=== PATIENT | female | born 1990 | race Caucasian/White ===

== ENCOUNTER 2024-04-02 15:09 | Outpatient (REF) | payer MEDICAID, SELFPAY ==
--- NOTE | ~2024-04-02 | US_ITS ---
EXAMINATION: US SOFT TISSUE OF THE NECK CLINICAL INFORMATION: Swollen lymph nodes. Evaluate axilla area indicated by patient. COMPARISON: None available. TECHNIQUE: Linear transducer grayscale and color Doppler examination of the cervical lymph nodes and axilla. FINDINGS: RIGHT NECK SOFT TISSUES: Scattered architecturally normal nodes are present. The nodes show normal fatty hilus, normal cortical thickness, and no cystic change or calcification. No abnormal color flow. The largest nodes are as follows: Level 1B: 1.4 x 0.5 x 1.7 cm. Normal jass architecture. Level 2: 1.0 x 0.4 x 1.0 cm. Normal jass architecture. Level 2: 1.0 x 0.5 x 1.1 cm. Normal jass architecture. LEFT NECK SOFT TISSUES: Scattered architecturally normal nodes are present. The nodes show normal fatty hilus, normal cortical thickness, and no cystic change or calcification. No abnormal color flow. The largest nodes are as follows: Level 1B: 1.2 x 0.6 x 1.1 cm. Normal jass architecture. Level 1B: 1.4 x 0.8 x 1.4 cm. Normal jass architecture. Level 2: 1.5 x 0.5 x 1.6 cm. Normal jass architecture. Level 2: 0.7 x 0.3 x 0.7 cm. Normal jass architecture. Level 5A: 1.0 x 0.5 x 1.2 cm. Normal jass architecture. BILATERAL AXILLAE: No lymphadenopathy is seen. There is no abnormal mass or fluid collection. US/US soft tiss head and/or neck IMPRESSION: 1. Nonpathologically enlarged bilateral cervical lymph nodes are seen, with normal architectural features. Recommend management on a clinical basis. There is no sizable cervical lymphadenopathy. 2. No axillary lymphadenopathy is seen. Electronically signed by: Juan Perry MD 04/23/2024 09:20 PM [facility]
== END 2024-04-02 15:10 | disposition home or self-care (01) ==
LOC: HO.US 15:09
PROVIDERS: PCP Physician Assistant Medical; Visit Provider Physician Assistant Medical
DX: R59.9 Enlarged lymph nodes, unspecified (principal)
CPT/HCPCS: 76536

== ENCOUNTER 2024-11-08 11:48 | Outpatient (REF) | payer MEDICAID, SELFPAY ==
--- NOTE | ~2024-11-08 | XR_ITS ---
CLINICAL HISTORY: M79.642 - Pain in left hand 3 view left hand Comparison: None Findings: Bones intact. No dislocations. No significant arthritic change. No erosions. No radiopaque foreign body. IMPRESSION: 1. No acute findings This document has been electronically signed by: Emerson Gusman MD on 11/09/2024 09:46:45
== END 2024-11-08 11:49 | disposition home or self-care (01) ==
LOC: HO.HOSX 11:48
PROVIDERS: PCP Physician Assistant Medical
DX: M79.642 Pain in left hand (principal); M79.641 Pain in right hand; R20.2 Paresthesia of skin; R20.0 Anesthesia of skin; M25.531 Pain in right wrist; M25.532 Pain in left wrist
CPT/HCPCS: 73130; 99212

== ENCOUNTER 2024-11-08 11:48 | Outpatient (AMB) | payer MEDICAID, SELFPAY ==
[2024-11-08 12:12] VITALS: BMI 42.8
--- NOTE | 2024-11-08 12:12 | MHC.OFFVIS ---
Vital Signs 11/08/24 12:12 Height 5 ft 9 in Weight 290 lb BMI 42.8 Intake Visit Reasons: [employer]- Left wrist/hand pain Intake Note: Kelsey is a 34 year old right hand dominant female who presents today for evaluation of left hand pain. Patient reports on 11/07/24 she picked up a box from [employer] and did not realize it was a metal swing set. She expresses when she lifted the box she experienced a shooting pain in the left hand middle finger that radiated up into her elbow. She is having continued pain when attempts to make a pinching, gripping twisting motion. Reports having intermittent numbness and tingling comes and goes in her left middle finger and left small finger. no EMG study done. Allergies No Known Allergies Allergy (Verified 11/08/24 12:15) HPI HPI [employer]- Left wrist/hand pain: Details: Kelsey is a 34 year old right hand dominant female who presents today for evaluation of left hand pain. Patient reports on 11/07/24 she picked up a box from [employer] and did not realize it was a metal swing set. She expresses when she lifted the box she experienced a shooting pain in the left hand middle finger that radiated up into her elbow. She is having continued pain when attempts to make a pinching, gripping twisting motion. Reports having intermittent numbness and tingling comes and goes in her left middle finger and left small finger. no EMG study done. 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 Neuro: Normal sensation of the tips of all digits of the left hand at this time Vascular: Cap refill brisk Pain: No tenderness to palpation about the left hand or wrist No tenderness to palpation of the right hand or wrist Minimal discomfort with range of motion testing in the office today ROM: Patient is able to make a closed fist and extend all digits of the bilateral hand fully and without difficulty Flexion, extension, pronation, supination full and intact of bilateral wrists Skin: No lacerations or abrasions. General: No ecchymosis, erythema, or evidence of infection. Psych: Appears grossly normal Affect normal Attitude cooperative Assessment & Plan Assessment & Plan (1) Numbness and tingling in left hand: Code(s): R20.0 - Anesthesia of skin; R20.2 - Paresthesia of skin Category: Medical (2) Bilateral hand pain: Code(s): M79.641 - Pain in right hand; M79.642 - Pain in left hand Category: Medical (3) Bilateral wrist pain: Code(s): M25.531 - Pain in right wrist; M25.532 - Pain in left wrist Category: Medical Plan 1. Left hand pain 2. Bilateral wrist pain 2. Numbness and tingling of left hand EMG and nerve conduction study ordered to assess the health of the nerves of the left upper extremity No study currently Follow-up after EMG and nerve conduction study for results review and discussion of further treatment options if indicated In the meantime, bilateral Velcro wrist splints provided to wear with sleeping and while her wrists are particularly bothering her Patient is amenable to this plan Follow-up after study Orders: Orders XR hand LT min 3V Today M79.642 - Pain in left hand NE nerve conduction velocity Today R20.0 - Anesthesia of skin, R20.2 - Paresthesia of skin NE electromyogram (EMG) Today R20.0 - Anesthesia of skin, R20.2 - Paresthesia of skin Coding Level of Care Code New Pt Level 3 (54573) Diagnoses Numbness and tingling in left hand R20.0; R20.2 Bilateral hand pain M79.641; M79.642 Bilateral wrist pain M25.531; M25.532
--- OUTSIDE RECORDS SUMMARY | 2024-11-08 12:39 | XMS_ITS | Clinical Summary ---
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 Active sulfamethoxazol e-trimethoprim (BACTRIM DS,SEPTRA DS) 800-160 mg per tablet Take 1 tablet by mouth 2 (two) times a day. Active Social History Tobacco Use Types Packs/Day Years Used Date Smoking Tobacco: Former Alcohol Use Standard Drinks/Week Comments Never 0 (1 standard drink = 0.6 oz pur e alcohol) Comments Unknown Sex and Gender Information Value Date Recorded Sex Assigned at Not on file Legal Sex Female 11:03 AM EDT Gender Identity Not on file Sexual Orientation Not on file Obstetrics History Last Filed Vital Signs Vital Sign Reading Time Taken Comments Blood Pressure 124/85 10/10/2023 11:02 AM EDT Pulse 87 10/10/2023 11:02 AM EDT Temperature - - Respiratory Rate - - Oxygen Saturation - - Inhaled Oxygen Concentration - - Weight 136 kg (300 lb 6.4 oz) 10/10/2023 11:02 A M EDT Height 175.3 cm (5' 9 ) 10/10/2023 11:02 AM EDT Body Mass Index 44.36 10/10/2023 11:02 AM EDT Plan of Treatment Health Maintenance Due Date Last Done Comments DTaP,Tdap,and Td Vaccines (1 - Tdap) 08/18/2010 Hepatitis B Vaccines (1 of 3 - 19+ 3-dose series) 08/18/2010 Cervical Cancer Screening: P ap Smear 08/18/2012 Depression Screening 01/03/2024 HIV Screening 01/03/2024 Hepatitis C Screening 01/03/2024 Social Influencers of Health Screening 01/03/2024 COVID-19 Vaccine ( - 2023-2 5 season) 2024 Influenza Vaccine (Season Ended) 2025 HIB Vaccines Aged Out No longer eligi ble based on patient's age to complete this topic HPV Vaccines Aged Out No longer eligi ble based on patient's age to complete this topic Hepatitis A Vaccines Aged Out No long er eligible based on patient's age to complete this topic IPV Vaccines Aged Out No longer eligi ble based on patient's age to complete this topic MMR Vaccines Aged Out No longer eligi ble based on patient's age to complete this topic Meningococcal ACWY Vaccine Aged Out N o longer eligible based on patient's age to complete this topic Meningococcal B Vaccine Aged Out No l onger eligible based on patient's age to complete this topic Pneumococcal Vaccine: Pediat rics (0 to 5 Years) and At-Risk Patients (6 to 64 Years) Aged Out No longer eligible b ased on patient's age to complete this topic RSV Immunization Patients Un shaina 20 months Aged Out No longer eligible b ased on patient's age to complete this topic Varicella Vaccines Aged Out No longer eligible based on patient's age to complete this topic Insurance [place]ICA[place] - [place] Care 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
== END 2024-11-08 12:39 | disposition home or self-care (01) ==
LOC: HO.HOS 11:48
PROVIDERS: PCP Physician Assistant Medical
DX: R20.0 Anesthesia of skin (principal); R20.2 Paresthesia of skin; M79.641 Pain in right hand; M79.642 Pain in left hand; M25.531 Pain in right wrist; M25.532 Pain in left wrist
CPT/HCPCS: 99203

== ENCOUNTER → 2024-11-08 11:52 | Outpatient (BNV) | payer MEDICAID, SELFPAY | PROVIDERS: PCP Physician Assistant Medical; Visit Provider Specialist | DX: M79.642 Pain in left hand (principal) | CPT/HCPCS: 73130 ==

== ENCOUNTER 2024-12-05 15:06 | Outpatient (REF) | payer MEDICAID, SELFPAY ==
--- NOTE | 2024-12-05 15:14 | EMG_ITS ---
Chief complaint: On and off numbness left middle and 5th digits, chronic wrist pain Reason for referral: Evaluate for Carpal Tunnel Syndrome or ulnar neuropathy Referred by: Anmol RAMSEY Procedure done: Left upper extremity NCS/EMG Precautions and/or limitations: None The limb temperature was monitored continuously and remained between 32-36 degrees C during the performance of the NCS. Nerve Conduction Studies Anti Sensory Summary Table ?Stim Site NR Onset (ms) Norm Onset (ms) Peak (ms) Norm Peak (ms) O-P Amp (?V) Norm O-P Amp Site1 Site2 Delta-0 (ms) Dist (cm) Miguel Angel (m/s) Norm Miguel Angel (m/s) Left Median Anti Sensory (2nd Digit) Wrist ? 2.3 3.1 <3.6 55.3 >10 Wrist 2nd Digit 2.3 14.0 61 Left Ulnar Anti Sensory (5th Digit) Wrist ? 2.2 3.0 <3.7 38.0 >15.0 Wrist 5th Digit 2.2 14.0 64 Motor Summary Table ?Stim Site NR Onset (ms) Norm Onset (ms) O-P Amp (mV) Norm O-P Amp iAmp (mV) Amp (1st) (%) Site1 Site2 Delta-0 (ms) Dist (cm) Miguel Angel (m/s) Norm Miguel Angel (m/s) Left Median Motor (Abd Poll Brev) Wrist ? 3.9 <3.9 7.5 >4.5 9.3 100.0 Elbow Wrist 3.8 21.0 55 >45 Elbow ? 7.7 7.4 9.2 98.7 Left Ulnar Motor (Abd Dig Minimi) Wrist ? 2.7 <3.0 7.0 >5 8.8 100.0 B Elbow Wrist 3.2 21.0 66 >45 B Elbow ? 5.9 6.1 8.2 87.1 A Elbow B Elbow 1.5 10.0 67 >45 A Elbow ? 7.4 6.1 8.1 87.1 Comparison Summary Table ?Stim Site NR Peak (ms) Norm Peak (ms) P-T Amp (?V) Site1 Site2 Delta-P (ms) Norm Delta (ms) Left Median/Radial Dig I Comparison (Digit 1 - 10cm) Median ? 2.6 <2.9 92.8 Median Radial 0.0 Radial ? 2.6 <2.8 21.0 EMG ?Side Muscle Nerve Root Ins Act Fibs Psw Amp Dur Poly Recrt Int Pat Comment Left 1stDorInt Ulnar C8-T1 Nml Nml Nml Nml Nml 0 Nml Complete Left FlexCarRad Median C6-7 Nml Nml Nml Nml Nml 0 Nml Complete Left Biceps Musculocut C5-6 Nml Nml Nml Nml Nml 0 Nml Complete Left Triceps Radial C6-7-8 Nml Nml Nml Nml Nml 0 Nml Complete Left Deltoid Axillary C5-6 Nml Nml Nml Nml Nml 0 Nml Complete FINDINGS: All motor and sensory nerves tested showed normal latencies, amplitudes and conduction velocities. Concentric needle EMG was performed in selected muscles of the left upper extremity. Study did not reveal signs of electric abnormalities as shown in the table above. IMPRESSION: 1. This is a normal study. 2. There is no electrodiagnostic evidence for median neuropathy, ulnar neuropathy, brachial plexopathy, or cervical radiculopathy. Thank you for your kind referral. Charline Davies MD, RACHELE Board Certified, [place] Board [employer] and Rehabilitation (ABPMR) Board Certified, [place] Board of Electrodiagnostic Medicine (ABEM) CODIN [id number] MTDD
--- OUTSIDE RECORDS SUMMARY | 2024-12-05 18:20 | XMS_ITS | Patient Health Record ---
Author Organization [facility] Address [address] [place], [place] [id number] Care Team Providers Care Healthcare Facility Administrator Name Role Phone Ricardo Campos Primary Care Provider Cristi Alcala Unavailable [phone] Reason For Referral No Information Social History Tobacco Use: Social History Observation Description Date Details (start date - stop date) Current Smoker NA - NA Smoking: Question Answer Notes Are you a current smoker How often do you smoke cigarettes? every day Problems Problem Type SNOMED Code ICD Code Onset Dates Problem Status W/U Status Risk Notes Problem 032977794 Morbid obesity (E66.01) Active confirmed Problem [id number] Palpitations (R00.2) Active confirmed Plan Of Treatment No Information Insurance Providers Payer Name Payer Address Payer Phone Subscriber Number Group Number Insured Name Patient Relationship to Insured Coverage Start Date Coverage End Date [facility] [address] JU[place] Cardenas [phone] [id number] Kelsey Garcia Self - patient is the insured Medical (General) History Medical History History ICD Code Asthmatic Palpitations Surgical History Surgery Date(Month/Year)
== END 2024-12-05 15:07 | disposition home or self-care (01) ==
LOC: HO.NEURO 15:06
DX: R20.0 Anesthesia of skin (principal); R20.2 Paresthesia of skin
CPT/HCPCS: 95886; 95909

== ENCOUNTER → 2024-12-05 15:14 | Outpatient (BNV) | payer MEDICAID, SELFPAY | PROVIDERS: Visit Provider Physical Medicine & Rehabilitation | DX: R20.2 Paresthesia of skin (principal); M25.532 Pain in left wrist | CPT/HCPCS: 95886; 95909 ==

== ENCOUNTER 2024-12-20 11:30 | Outpatient (AMB) | payer MEDICAID, SELFPAY ==
[2024-12-20 11:45] VITALS: BMI 42.8
--- NOTE | 2024-12-20 11:45 | MHC.OFFVIS ---
Vital Signs 12/20/24 11:45 Height 5 ft 9 in Weight 290 lb BMI 42.8 Intake Visit Reasons: OV-EMG/NCS review left hand/wrist Intake Note: Kelsey is a 34 year old right hand dominant female who presents today for a EMG review of the left hand. Normal study Allergies No Known Allergies Allergy (Verified 12/20/24 11:46) HPI HPI OV-EMG/NCS review left hand/wrist: Details: Patient is a 34-year-old female who presents for EMG review of the left hand and wrist. Patient reports that her symptoms have improved greatly from previous evaluation, and then her pain has greatly improved, numbness and tingling has completely resolved. No other acute complaints or concerns at this time. 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 Neuro: Normal sensation of the tips of all digits of the left hand at this time Vascular: Cap refill brisk Pain: No tenderness to palpation about the left hand or wrist No tenderness to palpation of the right hand or wrist Minimal discomfort with range of motion testing in the office today ROM: Patient is able to make a closed fist and extend all digits of the bilateral hand fully and without difficulty Flexion, extension, pronation, supination full and intact of bilateral wrists Skin: No lacerations or abrasions. General: No ecchymosis, erythema, or evidence of infection. Psych: Appears grossly normal Affect normal Attitude cooperative Assessment & Plan Assessment & Plan (1) Bilateral hand pain: Code(s): M79.641 - Pain in right hand; M79.642 - Pain in left hand Category: Medical (2) Bilateral wrist pain: Code(s): M25.531 - Pain in right wrist; M25.532 - Pain in left wrist Category: Medical (3) Numbness and tingling in left hand: Code(s): R20.0 - Anesthesia of skin; R20.2 - Paresthesia of skin Category: Medical Plan 1. Numbness and tingling of left hand Left hand and wrist pain Symptoms have resolved With a negative EMG, no acute i surgical intervention is indicated With complete symptom resolution, no further intervention is indicated Patient understands this is amenable to this plan Follow-up as needed Coding Level of Care Code Est Pt Level 3 (42644) Diagnoses Bilateral hand pain M79.641; M79.642 Bilateral wrist pain M25.531; M25.532 Numbness and tingling in left hand R20.0; R20.2
--- OUTSIDE RECORDS SUMMARY | 2024-12-20 12:00 | XMS_ITS | Clinical Summary ---
Author Organization [facility] Address [address] [place] [address] Care Team Providers Care System Sales Consultant Name Role Phone Pat Lau Primary Care Provider [phone] Source Comments PLEASE NOTE, if this patient is a minor, it may be UNLAWFUL to discuss sensitive information that is contained in these records (such as FAMILY PLANNING, MENTAL HEALTH or SUBSTANCE ABUSE) with the minor patient's parent or other person without the patient's specific authorization.[facility] Allergies No known active allergies Medications ergocalciferol (VITAMIN D-2) 1,250 mcg (50,000 unit) capsuleIndicati ons:Vitamin D deficiency TAKE 1 CAPSULE BY MOUTH EVERY WEEK DIRECTED 90 Capsule 1 4 Active VENTOLIN HFA 90 mcg/actuation inhaler INHALE 2 PUFFS EVERY 4 HOURS BY INHALATION ROUTE. 4 Active acetaminophen (TYLENOL) 500 mg tabletIndicatio ns:Hypermobilit y syndrome TAKE 2 TABLETS BY MOUTH EVERY 6 HOURS NEEDED 180 Tablet 2 4 Active cyclobenzaprine (FLEXERIL) 10 mg tabletIndicatio ns:Hypermobilit y syndrome TAKE 1 TABLET BY MOUTH TWICE DAILY FOR 5 DAYS NEEDED FOR PAIN 10 Tablet 1 4 Active ibuprofen 800 mg tabletIndicatio ns:Hypermobilit y syndrome Take 1 Tablet by mouth 3 (three) times daily as needed for pain 90 Tablet 4 Active gabapentin (NEURONTIN) 100 mg capsuleIndicati ons:Hypermobili ty syndrome Take 1 Capsule by mouth daily 90 Capsule 1 5 Active Active Problems Problem Noted Date Diagnosed Date Ankle pain 03/18/2024 Closed fracture of metatarsal bone 03/18/2024 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 Low back pain 03/18/2024 Neck pain 03/18/2024 Pain in thoracic spine 03/18/2024 Hypermobility syndrome 12/12/2023 Mild intermittent asthma without complication (H [facility]-HCC) 12/12/2023 Class 3 severe obesity due t o excess calories without serious comorbidity with body mass index (BMI) of 40.0 to 44.9 in adult ([facility]) 12/12/2023 Abnormal cervical Papanicolaou smear 12/12/2023 Vitamin D deficiency 12/12/2023 Chronic pain of both knees 06/09/2023 Overview (03/18/2024): Pain and locking of the knee hurts to extend when bent too long. Vertigo 10/10/2018 Plantar fasciitis 07/22/2018 Pain in both feet 07/10/2018 Encounters Date Type Department Care Team Description 11/12/2024 10:40 AM EDT Office Visit [address] [phone] Pat Lau PA from Last 3 Months Family History Medical History Relation Name Comments Stroke Maternal Grandmother Skin cancer Paternal Grandfather Stroke Paternal Grandfather Relation Name Status Comments Brother Alive Father Alive Maternal Grandmother Mother Alive Paternal Grandfather Alive Sister Alive Social History Tobacco Use Types Packs/Day Years Used Date Smoking Tobacco: Never Smokeless Tobacco: Never Tobacco Cessation:Counseling Given: Not Answered Alcohol Use Standard Drinks/Week Comments Not Currently 0 (1 standard drink = 0.6 oz pur e alcohol) Social Connections Answer Date Recorded How often do you feel lonely or isolated from th ose around you? 1 03/14/2024 Financial Resource Strain Answer Date R ecorded Hard to pay for: Utilities 1 03/14 Stress Answer Date Recorded Do you feel these kinds of stress these days? 1 03/14/2024 Physical Activity Answer Date Recorded Physical Activity 0 10/03/2023 Food Insecurity Answer Date Recorded Within the past 12 months, t he food you bought just didn't last and you didn't have enough money to get more. 1 03/14/20 24 Transportation Needs Answer Date Record ed Hard to pay for: Transportation 1 03/14/2024 Housing Stability Answer Date Recorded Hard to pay for: Rent/Mortgage payment 1 03/14/2024 Safety and Environment Answer Date Parish rded How often does anyone, inclu ding family and friends, physically hurt you? 1 12/12/2023 Utilities Answer Date Recorded Hard to pay for: Utilities 1 03/14 Employment Answer Date Recorded Stress 0 12/12/2023 Comments No Sex and Gender Information Value Date Recorded Sex Assigned at Female 12/12/2023 6:44 AM PDT Legal Sex Female 8:40 AM PST Gender Identity Female 12/12/2023 6:44 AM PDT Sexual Orientation Straight 12/12/2023 6: 44 AM PDT Last Filed Vital Signs Vital Sign Reading Time Taken Comments Blood Pressure 114/74 11/12/2024 10:58 AM EDT Pulse 90 11/12/2024 10:58 AM EDT Temperature 36.9 C (98.5 F) 07/02/2024 3:49 PM EST Respiratory Rate 18 11/12/2024 10:58 AM EDT Oxygen Saturation 99% 11/12/2024 10:58 AM EDT Inhaled Oxygen Concentration - - Weight 131.1 kg (289 lb) 11/12/2024 10:58 AM EDT Height 175.3 cm (5' 9 ) 11/12/2024 10:58 AM EDT Body Mass Index 42.68 11/12/2024 10:58 AM EDT Plan of Treatment Health Maintenance Due Date Last Done Comments HPV Screening 1991 Imm-DTaP/Tdap/Td (1 - Tdap) 08/18/2010 Imm-Hepatitis B (1 of 3 - 19 + 3-dose series) 08/18/2010 Imm-Pneumococcal (1 of 2 - PCV) 08/18/2010 Srp-GDHQA-90 ( - season) 2024 Relationship Safety Screening/Counseling 12/11/2024 12/12/2023 Imm-Influenza (#1) 2025 Annual Wellness (Adult): Ind icated (All Coverage) 03/14/2025 03/14/2024 Anxiety Screening 03/14/2025 03/14/2024 Tobacco Screening 03/14/2025 03/14/2024 Cervical Cancer Screening 05/12/2025 Pap + HPV 05/12/2025 05/23/2024 Hypertension Screening (#1) 11/12/2025 Lipid Screening 03/14/2027 03/14/2024 Pap Smear 05/23/2027 05/23/2024 HIV Screening Completed 03/14/2024, 01/12/2022 Hepatitis C Screening Completed 03/14/2024 Alcohol and Drug Screen Completed 07/02/19, 03/14/2024, 12/12/2023 Depression Annual Screen Completed 07/02/2024, 07/2023 Cervical Ablation/Cold-Knife Conization Discontinued Cervical Cryotherapy Discontinued Colposcopy Discontinued Endometrial Biopsy Discontinued Excision/Leep Discontinued HPV Genotyping Discontinued Vaginal Pap Discontinued Vulvoscopy Discontinued Procedures Procedure Name Priority Date/Time Associated Diagnosis Comments REFERRAL SCANNED DOCUMENT 11/08/2024 3:00 AM EDT IMAGING SCANNED DOCUMENT 11/08/2024 3:00 AM EDT THINPREP IMAGING PAP, HPV MRNA E6/E7 RFLEX HPV 16,18/45 CT/NG Routine 05/23/2024 1:54 PM EST Cervical dysplasia HIV 1/2 AG & AB W/RFLX (4TH GEN) Routine 03/14/2024 2:19 PM EDT Routine screening for STI (sexually transmitted infection) HEPATITIS C AB W/RFLX HCV RNA, QT, RT PCR Routine 03/14/2024 2:19 PM EDT Routine screening for STI (sexually transmitted infection) LIPID PANEL Routine 03/14/2024 2:19 PM EDT Annual physical exam Class 3 severe obesity due to excess calories without serious comorbidity with body mass index (BMI) of 40.0 to 44.9 in adult ([facility]) from Last 3 Months or Most Recently Relevant to Health Maintenance Results * REFERRAL SCANNED DOCUMENT (11/08/2024 3:00 AM EDT) 11/08/2024 3:00 AM EDT us Pat Lau PA SCAN REFERRAL Final Result * IMAGING SCANNED DOCUMENT (11/08/2024 3:00 AM EDT) 11/08/2024 3:00 AM EDT Result [facility] Mandie Panda PA-C SCAN IMAGING Final Result * (ABNORMAL) THINPREP IMAGING PAP, HPV MRNA E6/E7 RFLEX HPV 16,18/45 CT/NG (05/23/2024 1:54 PM EST) CHLAMYDIA TRACHOMATIS RNA, TMA NOT DETECTED NOT DETECTED [facility] NEISSERIA GONORRHOEAE RNA, TMA NOT DETECTED NOT DETECTED [facility] COMMENT [facility] CLINICAL INFORMATION See Note [facility] Comment:None given LMP See Note [facility] Comment:NONE GIVEN PREV. PAP See Note [facility] Comment:NONE GIVEN PREV. BX See Note [facility] Comment:NONE GIVEN SOURCE See Note [facility] Comment:Cervix STATEMENT OF ADEQUACY See Note [facility] Comment: Satisfactory for evaluation. Endocervical/transformation zone component present. GENERAL CATEGORIZATION See Note(A) [facility] Comment:Cytology Results: Ep ithelial Cell Abnormality INTERPRETATION/RESU LT See Note(A) [facility] Comment:Low Grade Squamous I ntraepithelial Lesion (LSIL) COMMENT See Note [facility] Comment: This Pap test has been evaluated with computer assisted technology. CAM SPECIALIST See Note [facility] [employer] Comment: MRC, CT(ASCP) CT screening location: [place] [address] PATHOLOGIST See Note [facility] Comment: Sayra Mayfield M.D. Direct , Board Certified in Anatomic and Clinical Pathology and Cytopathology (electronic signature) Consulting Pathologist [facility] [address] [place] [address] COMMENT [facility] HPV MRNA E6/E7 Detected(A ) Not Detected [facility] Comment: Methodology: Flag Maker-Mediated Amplification This assay detects E6/E7 viral messenger RNA (mRNA) from 14 high-risk HPV types (16,18,31,33,35,39,45,51,52,56,58,59,66,68). Cervical sources are required for HPV testing. If a vaginal source from a patient who has had a total hysterectomy with removal of cervix was submitted, please contact the testing laboratory for alternative testing options. For additional information, please refer to http://[employer]/faq/LUM564s1 (This link if provided for information/ educational purposes only.) Swab Cervix uteri structure / Unknown 05/23/2024 1:54 PM EST 05/24/2024 5:47 AM EST Narrative [facility] - 05/28/2024 6:22 AM EST EXPLANATORY NOTE: The Pap is a screening test for cervical cancer. It is not a diagnostic test and is subject to false negative and false positive results. It is most reliable when a satisfactory sample, regularly obtained, is submitted with relevant clinical findings and history, and when the Pap result is evaluated along with historic and current clinical information. The analytical performance characteristics of this assay, when used to test SurePath(TM) specimens have been determined by [employer]. The modifications have not been cleared or approved by the FDA. This assay has been validated pursuant to the CLIA regulations and is used for clinical purposes. For additional information, please refer to https://[employer]/faq/MTC712 (This link is being provided for information/ educational purposes only.) Liudmila Formisano DO LAB - PATHOLOGY AND CYTOLOGY A MBULATORY Final Result [employer] [address] [address], [facility] [address] [address] * HEPATITIS C AB W/RFLX HCV RNA, QT, RT PCR (03/14/2024 2:19 PM EDT) HEPATITIS C ANTIBODY NON-REACT HEATHER NON-REACT HEATHER Location Labs [facility] Comment: HCV antibody was non-reactive. There is no laboratory evidence of HCV infection. In most cases, no further action is required. However, if recent HCV exposure is suspected, a test for HCV RNA (test code 28581) is suggested. For additional information please refer to http://[employer]/faq/WFV90d7 (This link is being provided for informational/ educational purposes only.) Blood Blood / Unknown 03/14/2024 2 :19 PM EDT 03/14/2024 2:19 PM EDT Mandie Panda PA-C LAB - BLOOD DRAW Edited Resu lt - Final Performing Organization Address City/[facility]/ZIP Co de Phone Number [facility] [address] [address], [facility] [address] [address] * HIV 1/2 AG & AB W/RFLX (4TH GEN) (03/14/2024 2:19 PM EDT) HIV AG/AB, 4TH GEN NON-REAC TIVE NON-REAC TIVE [facility] Comment: HIV-1 antigen and HIV-1/HIV-2 antibodies were not detected. There is no laboratory evidence of HIV infection. PLEASE NOTE: This information has been disclosed to you from records whose confidentiality may be protected by state law. If your state requires such protection, then the state law prohibits you from making any further disclosure of the information without the specific written consent of the person to whom it pertains, or as otherwise permitted by law. A general authorization for the release of medical or other information is NOT sufficient for this purpose. For additional information please refer to http://[employer]/faq/GLQ805 (This link is being provided for informational/ educational purposes only.) The performance of this assay has not been clinically validated in patients less than 2 years old. Blood Blood / Unknown 03/14/2024 2 :19 PM EDT 03/14/2024 2:19 PM EDT us Mandie Panda PA-C LAB - BLOOD DRAW Final Resul t Performing Organization Address [facility]/ZIP Co de Phone Number [facility] [address] [address], [employer] [address] [address] * LIPID PANEL (03/14/2024 2:19 PM EDT) CHOLESTEROL, TOTAL 151 <200 mg/dL [facility] HDL CHOLESTEROL 55 > OR = 50 mg/dL Location Labs [facility] TRIGLYCERIDES 50 <150 mg/dL [facility] LDL-CHOLESTEROL 84 99 mg/dL (calc) [facility] Comment: Reference range: <100 Desirable range <100 mg/dL for primary prevention; <70 mg/dL for patients with CHD or diabetic patients with > or = 2 CHD risk factors. LDL-C is now calculated using the Mary calculation, which is a validated novel method providing better accuracy than the Friedewald equation in the estimation of LDL-C. Christopher SS et al. KENNEDY. 2013;310(19): 5340-9236 (http://education.Parental Health/faq/SZZ835) CHOL/HDLC RATIO 2.7 <5.0 (calc) Location Labs [facility] NON-HDL CHOLESTEROL 96 <130 mg/dL (calc) Location Labs [facility] Comment: For patients with diabetes plus 1 major ASCVD risk factor, treating to a non-HDL-C goal of <100 mg/dL (LDL-C of <70 mg/dL) is considered a therapeutic option. Blood Blood / Unknown 03/14/2024 2 :19 PM EDT 03/14/2024 2:19 PM EDT Mandie Panda PA-C LAB - BLOOD DRAW Final Resul t [employer] [facility] [address] [address], [facility] [address] [address] from Last 3 Months or Most Recently Relevant to Health Maintenance Insurance [id number] Care Teams System Sales Consultant Relationship Specialty Start Date End Date Pat Lau PA [address] [place] [address] PCP - General Primary Care 10/11/23
--- OUTSIDE RECORDS SUMMARY | 2024-12-20 12:00 | XMS_ITS | Patient Health Record ---
Author Organization [facility] Address [address] [place], [place] [id number] Care Team Providers Care Outside Operator Name Role Phone Ricardo Campos Primary Care Provider Cristi Alcala Unavailable [phone] Reason For Referral No Information Social History Tobacco Use: Social History Observation Description Date Details (start date - stop date) Current Smoker NA - NA Smoking: Question Answer Notes Are you a current smoker How often do you smoke cigarettes? every day Problems Problem Type SNOMED Code ICD Code Onset Dates Problem Status W/U Status Risk Notes Problem 492871956 Morbid obesity (E66.01) Active confirmed Problem 78566521 Palpitations (R00.2) Active confirmed Plan Of Treatment No Information Insurance Providers Payer Name Payer Address Payer Phone Subscriber Number Group Number Insured Name Patient Relationship to Insured Coverage Start Date Coverage End Date [facility] [address] JUAN Cardenas [phone] [id number] Kelsey Garcia Self - patient is the insured Medical (General) History Medical History History ICD Code Asthmatic Palpitations Surgical History Surgery Date(Month/Year)
--- OUTSIDE RECORDS SUMMARY | 2024-12-20 12:00 | XMS_ITS | Clinical Summary ---
Author Organization [address] [place] [address] Address [address] [place] [address] Phone Care Team Providers Care Prop Sawyer Name Role Phone Pat Lau Primary Care [...] Influencers of Health Screening 01/03/2024 COVID-19 Vaccine (1 - 2023-2 5 season) 2024 Influenza Vaccine (#1) 2025 HIB Vaccines Aged Out No longer [...] 5 Years) and At-Risk Patients (6 to 49 Years) Aged Out No longer eligible b ased on patient's age to complete this topic RSV Immunization Patients Un shaina 20 months Aged Out No longer eligible b ased on patient's age to complete this topic Varicella Vaccines Aged Out No longer eligible based on patient's age to complete this topic Insurance MEDICAID - [place] Care Teams Prop Sawyer Relationship Specialty Start Date End Date Pat Lau PA [address] [place] [address] PCP - General 07/22/24
== END 2024-12-20 11:49 | disposition home or self-care (01) ==
LOC: HO.HOS 11:30
PROVIDERS: PCP Student in an Organized Health Care Education/Training Program
DX: M79.641 Pain in right hand (principal); M79.642 Pain in left hand; M25.531 Pain in right wrist; M25.532 Pain in left wrist; R20.0 Anesthesia of skin; R20.2 Paresthesia of skin
CPT/HCPCS: 99213

== ENCOUNTER → 2024-12-20 11:30 | Outpatient (BNVA) | payer MEDICAID, SELFPAY | PROVIDERS: PCP Student in an Organized Health Care Education/Training Program | DX: M79.641 Pain in right hand (principal); M79.642 Pain in left hand; M25.531 Pain in right wrist; M25.532 Pain in left wrist; R20.0 Anesthesia of skin; R20.2 Paresthesia of skin | CPT/HCPCS: 99212 ==

== ENCOUNTER 2025-02-12 14:35 | Outpatient (AMB) | payer MEDICAID, SELFPAY ==
--- OUTSIDE RECORDS SUMMARY | 2025-02-07 08:40 | XMS_ITS | Encounter Summary ---
Author Organization [facility] Address [address] [place] [address] Care Team Providers Care Literature Teacher Name Role Phone Sid Pat RAMSEY Primary Care Provider [phone] Reason for Visit * Reason Comments Family Planning Counseling PT here for n augustin control Encounter Details Date Type Department Care Team (Late st Contact Info) Description 02/07/2025 8:40 AM EDT Office Visit [facility] [address] [place] [phone] Gordy Baker MD [address] [place] [address] Social History Tobacco Use Types Packs/Day Years Used Date Smoking Tobacco: Never Smokeless Tobacco: Never Alcohol Use Standard Drinks/Week Comments Not Currently [...] enough money to get more. 1 03/14/20 Transportation Needs Answer Date Record ed Hard [...] Orientation Straight 12/12/2023 6: 44 AM PDT documented as of this encounter Last Filed Vital Signs Vital Sign Reading Time Taken Comments Blood Pressure 109/78 02/07/2025 8:40 AM EDT Pulse 86 02/07/2025 8:40 AM EDT Temperature 37 C (98.6 F) 02/07/2025 8:40 AM EDT Respiratory Rate 16 02/07/2025 8:40 AM EDT Oxygen Saturation 97% 02/07/2025 8:40 AM EDT Inhaled Oxygen Concentration - - Weight 124.5 kg (274 lb 6.4 oz) 02/07/2025 8:40 AM EDT Height - - Body Mass Index 40.52 01/21/2025 8:58 AM EDT documented in this encounter Progress Notes * Gordy Baker MD - 02/07/2025 8:42 AM EDT Kelsey Garcia is a 34 year old female Family Planning Counseling (PT here for nexplonan control ) Language: Concerns: Seen 01/21/25 for contraception counseling. Would like to have a Nexplanon placed. Patient's last menstrual period was 02/02/2025 (exact date). = day 6 Menstrual pattern: regular Contraception: none. Desires Nexplanon Pertinent Medical Issues: BMI 41 Social History Substance and Sexual Activity Sexual Activity Not Currently control/protection: Abstinence Having periods Objective: Vitals: 02/07/25 0840 BP: 109/78 Pulse: 86 Resp: 16 Temp: 98.6 ??F (37 ??C) TempSrc: Oral SpO2: 97% Weight: 274 lb 6.4 oz (124.5 kg) Body mass index is 40.52 kg/m??. Assessment: Z30.09 Family planning education, guidance, and counseling (primary encounter diagnosis) Plan: Patient counseled and signed informed consent for Nexplanon insertion. Then we learned that there are no sterile gloves to be had in this building. Procedure cancelled and will reschedule for MondayFebruary 12 = day 11 of cycle. Advised not to become over the long holiday weekend. Assessment and plan discussed with patient. Patient agrees with plan. Questions answered. Return MondayFeb 12 for Nexplanon placement, or reschedule for next month. Gordy Baker MD documented in this encounter Plan of Treatment Not on file documented as of this encounter Visit Diagnoses Diagnosis Family planning education, guidance, and counseling- Primary Other general counseling and advice for contraceptive management documented in this encounter Additional Health Concerns Assessment Noted Time PHQ-9 Depression Total Score: 0 07/02/19 25 3:47 PM PST A Depression follow-up plan has been documented for the patient 07/02/2024 4:28 PM PST documented as of this encounter Care Teams Literature Teacher Relationship Specialty Start Date End Date Pat Lau PA [address] [place] [id number] PCP - General Primary Care 10/11/23 documented as of this encounter
--- OUTSIDE RECORDS SUMMARY | 2025-02-12 09:00 | XMS_ITS | Encounter Summary ---
Author Organization [facility] Address [address] [place] [address] Care Team Providers Care Senior Chemical Engineer Name Role Phone Sid Pat ROXY Primary Care Provider [phone] Reason for Visit * Reason Comments Hormonal Contraception Nexplanaon insirt ion Encounter Details Date Type Department Care Team ([facility] st Contact Info) Description 02/12/2025 9:00 AM EDT Office Visit [address] [phone] Gordy Baker MD [address] [place] [address] Social History Tobacco Use Types Packs/Day Years [...] Sign Reading Time Taken Comments Blood Pressure 120/86 02/12/2025 9:17 AM EDT Pulse 89 02/12/2025 9:17 AM EDT Temperature - - Respiratory Rate 16 02/12/2025 9:17 AM EDT Oxygen Saturation 98% 02/12/2025 9:17 AM EDT Inhaled Oxygen Concentration - - Weight 124.7 kg (275 lb) 02/12/2025 9:17 AM EDT Height 175.3 cm (5' 9 ) 02/12/2025 9:17 AM EDT Body Mass Index 40.61 02/12/2025 9:17 AM EDT documented in this encounter Progress Notes * Raghu Florentino - 02/12/2025 3:39 PM EDTAddended by: RAGHU FLORENTINO on: 02/12/2025 03:39 PM Modules accepted: Orders * Gordy Baker MD - 02/12/2025 9:10 AM EDT 34 yo P1 seen for Nexplanon insertion. LMP 02/02/25 = day 11. No recent unprotected sex. Counseled on 02/07/25. Informed consent obtained and signed. Nexplanon inserted left upper arm with local anesthesia using sterile technique. Half the device was noted protruding.This was removed and a new Nexplanon obtained. This was placed successfully without incident. Bandaged and tolerated well. Followup at annual in May Serial number [id number] Expiration 2026-09 Lot [id number] * Raghu Florentino - 02/12/2025 9:08 AM EDT Refrigerating Technician LARC Intake [facility] Refrigerating Technician LARC Intake Overview FOR INSERTIONS: Patient presented today for contraceptive counseling. Patient has reviewed all contraceptive options and chosen Nexplanon . FOR REMOVALS: Patient presented today for contraceptive counseling. Patient has reviewed all contraceptive options and chosen to remove Other Patient-Supplied . LARC Visit Preparation Checklist is completed (both Refrigerating Technician and Nurse Sections). Yes Consent reviewed and signed. Yes Risk Assessment LMP: Patient's last menstrual period was 02/02/2025 (exact date). Last Unprotected Waterproof: 02/11/25 Emergency Contraception Indicated: No If Yes, Date Ordered: Current Contraceptive Method: None since 5 yr ago UPT Result: Quick-Start Method Used: Menstrual History Duration of Menses: 5-6 days Frequency of Menses: every end of month Flow: heavy for 3 days then medium Cramping: no HPV/STD History History of Abnormal Pap Smears: yes, last October History of LEEP/Cervical Procedures: yes History of STDs: In the past over 10 yrs. OB History Number of Pregnancies/Deliveries (G/P): , 3 pregnancies and 2 deliverys Spontaneous Vaginal Delivery (): yes Contraceptive Counseling Patient was counseled on tier effectiveness of contraceptive methods: Tier 1 methods (sterilization, non-hormonal IUD, hormonal IUD, Nexplanon) with 1% of rate, Tier 2 methods (vaginal ring, oral contraceptive pills, contraceptive path, Depo Provera injection) with 5-10% rate, Tier 3 methods (barrier methods and spermicides or withdrawal) with a >10% rate. Patientwas counseled regarding effectiveness, duration of use, route of method/frequency of use, and changes in menstrual bleeding pattern with all types of contraceptive methods. If patient desires Nexplanon, patient was informed that the most common side effect is irregular bleeding (e.g., spotting), especially in the first 6-12 months and that sometimes the implant causes long-term spotting, or periods get longer and heavier. documented in this encounter Miscellaneous Notes * Patient Instructions - Gordy Baker MD - 02/12/2025 9:17 AM EDT If you are not able to keep your appointment please call 24-48 hours before your appointment to cancel or reschedule. documented in this encounter Plan of Treatment Not on file documented as of this encounter Procedures Procedure Name Priority Date/Time Associated Diagnosis Comments HCG URINE MCKESSON (POCT) Routine 02/12/2025 3:38 PM EDT Insertion of implantable subdermal contraceptive documented in this encounter Results * HCG URINE MCKESSON (POCT) Urine Routine (02/12/2025 3:38 PM EDT) URINE HCG NEGATIVE NEGATIVE [facility] INTERNAL CONTROL PASS PASS [facility] POCT Urine Urine specimen / Unknown 02/12/2025 3:38 PM EDT us Gordy Baker MD LAB URINE AMBULATORY Final Resu lt [facility] POCT documented in this encounter Visit Diagnoses Diagnosis Insertion of implantable subdermal contraceptive- Primary documented in this encounter Additional Health Concerns Assessment Noted Time PHQ-9 Depression Total Score: 0 07/02/19 25 3:47 PM PST A Depression follow-up plan has been documented for the patient 07/02/2024 4:28 PM PST documented as of this encounter Care Teams Senior Chemical Engineer Relationship Specialty Start Date End Date Pat Lau PA [address] [place] [address] PCP - General Primary Care 10/11/23 documented as of this encounter
[2025-02-12 15:56] VITALS: BMI 42.8
--- NOTE | 2025-02-12 15:56 | MHC.OFFVIS ---
Vital Signs 02/12/25 15:56 Height 5 ft 9 in Weight 290 lb BMI 42.8 Intake Visit Reasons: NewProb- LT foot injury, DOI 02/09/25 Intake Note: Patient presents for left foot injury. She states she dropped a pot on her foot. Allergies No Known Allergies Allergy (Verified 12/20/24 11:46) HPI HPI [employer]- LT foot injury, DOI 02/09/25: Details: 34-year-old female presents to the office today for an injury she sustained to her left foot on 02/09/2025. She states she dropped a pot on the top of her foot and immediately felt discomfort and had difficulty ambulating. She states she also had discomfort with raising her big toe. Over time the pain has improved however she still has trouble putting full weight on the foot. 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 Mild tenderness over the top of the foot. EHL intact. Neurovascularly intact. Results Reviewed Results Reviewed: X-rays of the left foot obtained in the office today and reviewed by me are negative for any acute or chronic abnormalities. Assessment & Plan Assessment & Plan (1) Contusion of left foot: Code(s): S90.32XA - Contusion of left foot, initial encounter Category: Medical Plan: In the absence of fracture the patient will continue with comfortable shoes as tolerated. I did recommend a boot if she had difficulty weight-bearing but she declined. She will increase activities as tolerated and see me back if symptoms persist or worsen over the next 6-8 weeks. Orders: Orders XR foot LT min 3V Today M79.672 - Pain in left foot Coding Level of Care Code Est Pt Level 3 (82130) Complex EM visit Add On G2211 Diagnoses Contusion of left foot S90.32XA
--- OUTSIDE RECORDS SUMMARY | 2025-02-12 16:51 | XMS_ITS | Encounter Summary ---
Author Organization [facility] Address [address] [place] [address] Care Team Providers Care Bacon Skin Lifter Name Role Phone Sid Pat RAMSEY Primary Care Provider [phone] Encounter Details Date Type Department Care Team ([facility] st Contact Info) Description 01/22/2025 Results Follow-Up [facility] [address] [place] [phone] Gordy Baker MD [address] [place] [address] Social History Tobacco Use Types Packs/Day Years [...] AM PDT documented as of this encounter Miscellaneous Notes * Result Encounter Note - Gordy Baker MD - 01/22/2025 11:06 AM EDT hIV and Hep C are negative documented in this encounter Plan of Treatment Not on file documented as of this encounter Visit Diagnoses Not on filedocumented in this encounter Additional Health Concerns Assessment Noted Time PHQ-9 Depression Total Score: 0 07/02/19 25 3:47 PM PST A Depression follow-up plan has been documented for the patient 07/02/2024 4:28 PM PST documented as of this encounter Care Teams Bacon Skin Lifter Relationship Specialty Start Date End Date Pat Lau PA [facility] [place] [address] PCP - General Primary Care 10/11/23 documented as of this encounter
--- OUTSIDE RECORDS SUMMARY | 2025-02-12 16:51 | XMS_ITS | Clinical Summary ---
Author Organization [facility] Address [address] [facility] [address] [place] [address] Care Team Providers Care Adaptive Physical Educator Name Role Phone Unavailable Primary Care Provider Unavailabl e Encounters Date Type Department Care Team Description 12/31/2024 Population Health Risk Score [facility] (C3) Department [address] [facility] [address] [place] [address] Provider, Population Health Generic from Last 3 Months Social History Tobacco Use Types Packs/Day Years Used Date Smoking Tobacco: Never Assessed Comments Unknown Sex and Gender Information Value Date Recorded Sex Assigned at Not on file Legal Sex Female 9:26 PM EDT Gender Identity Not on file Sexual Orientation Not on file Plan of Treatment Health Maintenance Due Date Last Done Comments Depression Screening 1991 Lipid Panel 1991 SDOH Screening 1991 Disability Screening 1991 Alcohol/Substance Use Screening 2003 Tobacco Screening 2003 Family Planning (PISQ) 08/18/2006 HPV Vaccines (1 - 3-dose series) 08/18/2006 Hepatitis C Screening 08/18/2009 DTaP/Tdap/Td Vaccines (1 - Tdap) 08/18/2010 Hepatitis B Vaccines (1 of 3 - 19+ 3-dose series) 08/18/2010 Pneumococcal Vaccine: Pediatrics (0 to 5 Years) and At-Risk Patients (6 to 49) Years (1 of 2 - PCV) 08/18/2010 Pap Smear 08/18/2012 Cervical Cancer Screening 08/18/2021 HPV/Cotest 08/18/2021 COVID-19 Vaccine ( - 2023-2 5 season) 2025 Influenza Vaccine (#1) 2025 Zoster Vaccines (1 of 2) 08/18/2041 RSV Patients and Patients Aged 60 years or older (1 - 1-dose 75+ series) 08/18/2066 HIV Screening Completed 03/14/2024, 03/14/2024, 01/12/2022 HIB Vaccines Aged Out No longer eligi [...] patient's age to complete this topic Meningococcal Vaccine Aged Out No chandrika kelly eligible based on patient's age to complete this topic RSV under 20 months Aged Out No longe r eligible based on patient's age to complete this topic Rotavirus Vaccines Aged Out No longer eligible based on patient's age to complete this topic
--- OUTSIDE RECORDS SUMMARY | 2025-02-12 16:51 | XMS_ITS | Patient Health Record ---
Author Organization [facility] Address [address] [facility] [address] [place], [place] [id number] Care Team Providers Care Aerodynamicist Name Role Phone Ricardo Campos Primary Care Provider Cristi Alcala Unavailable [phone] Reason For Referral No Information Social History Tobacco Use: Social History Observation Description Date Details (start date - stop date) Current Smoker NA - NA Smoking: Question Answer Notes Are you a current smoker How often do you smoke cigarettes? every day Problems Problem Type SNOMED Code ICD Code Onset Dates Problem Status W/U Status Risk Notes Problem Morbid obesity (632499962) Morbid obesity (E66.01) Active confirmed Problem Palpitations (18146192) Palpitations (R00.2) Active confirmed Plan Of Treatment No Information Insurance Providers Payer Name Payer Address Payer Phone Subscriber Number Group Number Insured Name Patient Relationship to Insured Coverage Start Date Coverage End Date [facility] [address] JUAN Cardenas [phone] [id number] DelvinJavon wilsonhanie Self - patient is the insured Medical (General) History Medical History History ICD Code Asthmatic Palpitations Surgical History Surgery Date(Month/Year)
--- OUTSIDE RECORDS SUMMARY | 2025-02-12 16:51 | XMS_ITS | Clinical Summary ---
Author Organization [facility] Address [address] [place] [address] Care Team Providers Care Flower Grader Name Role Phone Pat Lau Primary Care Provider [phone] Source Comments PLEASE NOTE, if this patient [...] (BMI) of 40.0 to 44.9 in adult ([facility]) 12/12/2023 Abnormal cervical Papanicolaou smear 12/12/2023 Vitamin D deficiency 12/12/2023 Chronic pain of both knees 06/09/2023 Overview (03/18/2024): Pain and locking of the knee hurts to extend when bent too long. Vertigo 10/10/2018 Plantar fasciitis 07/22/2018 Pain in both feet 07/10/2018 Encounters Date Type Department Care Team Description 02/12/2025 9:00 AM EDT Office Visit [address] [phone] Gordy Baker MD 02/07/2025 8:40 AM EDT Office Visit [address] [phone] Gordy Baker MD 01/22/2025 Results Follow-Up [address] [phone] Gordy Baker MD 01/21/2025 8:40 AM EDT Office Visit [address] [phone] Gordy Baker MD 11/12/2024 10:40 AM EDT Office Visit [address] [phone] Pat Lau PA from Last 3 Months [...] Pulse 89 02/12/2025 9:17 AM EDT Temperature 37 C (98.6 F) 02/07/2025 8:40 AM EDT Respiratory Rate 16 02/12/2025 9:17 AM EDT Oxygen Saturation 98% 02/12/2025 9:17 AM EDT Inhaled Oxygen Concentration - - Weight 124.7 kg (275 lb) 02/12/2025 9:17 AM EDT Height 175.3 cm (5' 9 ) 02/12/2025 9:17 AM EDT Body Mass Index 40.61 02/12/2025 9:17 AM EDT Plan of Treatment Health Maintenance Due Date Last Done Comments HPV Screening 1991 Imm-DTaP/Tdap/Td (1 - Tdap) 08/18/2010 Imm-Hepatitis B (1 of 3 - 19 + 3-dose series) 08/18/2010 Imm-Pneumococcal (1 of 2 - PCV) 08/18/2010 Relationship Safety Screening/Counseling 12/11/2024 12/12/2023 [id number] (1 - 2023- season) 2025 Imm-Influenza (#1) 2025 Annual Wellness (Adult): Ind icated (All Coverage) 03/14/2025 03/14/2024 Anxiety Screening 03/14/2025 03/14/2024 Tobacco Screening 03/14/2025 03/14/2024 Cervical Cancer Screening 05/12/2025 Pap + HPV 05/12/2025 05/23/2024 Hypertension Screening (#1) 02/12/2026 Lipid Screening 03/14/2027 03/14/2024 Pap Smear 05/23/2027 05/23/2024 Alcohol and Drug Screen Completed 07/02/19, 03/14/2024, 12/12/2023 Depression Annual Screen Completed 07/02/2024, 07/2023 HIV Screening Completed 01/21/2025, 08/2023, 01/12/2022 Hepatitis C Screening Completed 01/21/2025, 024 Cervical Ablation/Cold-Knife Conization Discontinued Cervical Cryotherapy Discontinued Colposcopy Discontinued Endometrial Biopsy Discontinued Excision/Leep Discontinued HPV Genotyping Discontinued Vaginal Pap Discontinued Vulvoscopy Discontinued Procedures Procedure Name Priority Date/Time Associated Diagnosis Comments HCG URINE MCKESSON (POCT) Routine 02/12/2025 3:38 PM EDT Insertion of implantable subdermal contraceptive HEPATITIS C AB W/RFLX HCV RNA, QT, RT PCR Routine 01/21/2025 9:17 AM EDT Screening examination for venereal disease HIV 1/2 AG & AB W/RFLX (4TH GEN) Routine 01/21/2025 9:17 AM EDT Screening examination for venereal disease SURESWAB ADVANCED BACTERIAL VAGINOSIS (BV), CT/NG, TMA Routine 01/21/2025 6:05 AM EDT Screening examination for venereal disease THINPREP IMAGING PAP, HPV MRNA E6/E7 RFLEX HPV 16,18/45 CT/NG Routine 05/23/2024 1:54 PM EST Cervical dysplasia LIPID PANEL Routine 03/14/2024 2:19 PM EDT Annual physical exam Class 3 severe obesity due to excess calories without serious comorbidity with body mass index (BMI) of 40.0 to 44.9 in adult ([facility]) from Last 3 Months or Most Recently Relevant to Health Maintenance Results * HCG URINE MCKESSON (POCT) Urine Routine (02/12/2025 3:38 PM EDT) URINE HCG NEGATIVE NEGATIVE [facility] POCT INTERNAL CONTROL PASS PASS [facility] POCT Urine Urine specimen / Unknown 02/12/2025 3:38 PM EDT Gordy Baker MD LAB URINE AMBULATORY Final Resu lt [facility] POCT * HEPATITIS C AB W/RFLX HCV RNA, QT, RT PCR Routine (01/21/2025 9:17 AM EDT) HEPATITIS C ANTIBODY NON-REACT HEATHER NON-REACT HEATHER 01/22/2025 10:03 AM EDT Subject Company [facility] Blood Blood / Unknown 01/21/2025 9 :17 AM EDT 01/22/2025 7:03 AM EDT Narrative [employer] - 01/22/2025 10:05 AM EDT . HCV antibody was non-reactive. There is no laboratory evidence of HCV infection. . In most cases, no further action is required. However, if recent HCV exposure is suspected, a test for HCV RNA (test code 80918) is suggested. . For additional information please refer to http://education.[employer]/faq/YMV22b0 (This link is being provided for informational/ educational purposes only.) . us Gordy Baker MD LAB - BLOOD DRAW Final Result Performing Organization Address [facility] Co de Phone Number [employer] [address] [address], [employer] [address] [address] * HIV 1/2 AG & AB W/RFLX (4TH GEN) Routine (01/21/2025 9:17 AM EDT) HIV Screen Final SEE NOTE 01/22/2025 10:03 AM EDT [employer] [facility] HIV AG/AB, 4TH GEN NON-REACT HEATHER NON-REACT HEATHER 01/22/2025 10:03 AM EDT [employer] [facility] Blood Blood / Unknown 01/21/2025 9 :17 AM EDT 01/22/2025 7:03 AM EDT Narrative [employer] [facility] - 01/22/2025 10:05 AM EDT HIV Negative . HIV-1 antigen and HIV-1/HIV-2 antibodies were not detected. There is no laboratory evidence of HIV infection. Gordy Baker MD LAB - BLOOD DRAW Final Result Performing Organization Address [facility] de Phone Number [employer] [address] [address], [employer] [address] [address] * SURESWAB ADVANCED BACTERIAL VAGINOSIS (BV), CT/NG, TMA Vaginal Vaginal Routine (01/21/2025 6:05 AM EDT) SURESWAB(R) ADV BACTERIAL VAGINOSIS (BV), TMA NEGATIVE NEGATIVE 01/22/2025 5:17 PM EDT [employer] [facility] CHLAMYDIA TRACHOMATIS RNA, TMA NOT DETECTED NOT DETECTED 01/22/2025 5:17 PM EDT [employer] [facility] NEISSERIA GONORRHOEAE RNA, TMA NOT DETECTED NOT DETECTED 01/22/2025 5:17 PM EDT [employer] [facility] Vaginal Vaginal structure / Unknown 01/21/2025 6:05 AM EDT 01/22/2025 5:23 AM EDT Narrative [employer] - 01/22/2025 5:18 PM EDT For additional information, please refer to https://education.[employer]/faq/ZTQ292 (This link is being provided for information/ educational purposes only.) Gordy Baker MD LAB - MICROBIOLOGY AMBULATORY F inal Result [facility] [address] [address], [employer] [place] Create [address] [place] [phone] * (ABNORMAL) THINPREP IMAGING PAP, HPV MRNA E6/E7 RFLEX HPV 16,18/45 CT/NG (05/23/2024 1:54 PM EST) CHLAMYDIA TRACHOMATIS RNA, TMA NOT DETECTED NOT DETECTED [facility] NEISSERIA GONORRHOEAE RNA, TMA NOT DETECTED NOT DETECTED [facility] COMMENT [facility] CLINICAL INFORMATION See Note [facility] Comment:None given LMP See Note [facility] Comment:NONE GIVEN PREV. PAP See Note [facility] Comment:NONE GIVEN PREV. BX See Note [facility] Comment:NONE GIVEN SOURCE See Note [facility] Comment:Cervix STATEMENT OF ADEQUACY See Note [facility] Comment: Satisfactory for evaluation. Endocervical/transformation zone component present. GENERAL CATEGORIZATION See Note(A) [facility] Comment:Cytology Results: Ep ithelial Cell Abnormality INTERPRETATION/RESU LT See Note(A) [facility] Comment:Low Grade Squamous I ntraepithelial Lesion (LSIL) COMMENT See Note [facility] Comment: This Pap test has been evaluated with computer assisted technology. CLIENT SALES AND SERVICE OFFICER See Note [facility] Comment: MRC, CT(ASCP) CT screening location: [address] [address] PATHOLOGIST See Note [employer] Comment: Sayra Mayfield M.D. Direct , Board Certified in Anatomic and Clinical Pathology and Cytopathology (electronic signature) Consulting Pathologist [facility] [address] [place] [phone] COMMENT Subject Company [facility] HPV MRNA E6/E7 Detected(A ) Not Detected [facility] Comment: Methodology: V Belt Mold Assembler And Curer-Mediated Amplification This assay detects E6/E7 viral messenger RNA (mRNA) from 14 high-risk HPV types (16,18,31,33,35,39,45,51,52,56,58,59,66,68). Cervical sources are required for HPV testing. If a vaginal source from a patient who has had a total hysterectomy with removal of cervix was submitted, please contact the testing laboratory for alternative testing options. For additional information, please refer to http://[employer]/faq/KDB121z0 (This link if provided for information/ educational purposes only.) Swab Cervix uteri structure / Unknown 05/23/2024 1:54 PM EST 05/24/2024 5:47 AM EST Narrative [employer] [facility] - 05/28/2024 6:22 AM EST EXPLANATORY NOTE: [...] test SurePath(TM) specimens have been determined by [employer]. The modifications have not been cleared or approved by the FDA. This assay has been validated pursuant to the CLIA regulations and is used for clinical purposes. For additional information, please refer to https://education.[employer]/faq/KVE161 (This link is being provided for information/ educational purposes only.) us Liudmila Formisano DO LAB - PATHOLOGY AND CYTOLOGY A MBULATORY Final Result [facility] [address] [place] [phone], Subject Company [address] [address] * LIPID PANEL (03/14/2024 2:19 PM EDT) CHOLESTEROL, TOTAL 151 <200 mg/dL [facility] HDL CHOLESTEROL 55 > OR = 50 mg/dL [facility] TRIGLYCERIDES 50 <150 mg/dL [facility] LDL-CHOLESTEROL 84 99 mg/dL (calc) [facility] Comment: Reference range: <100 Desirable range <100 mg/dL for primary prevention; <70 mg/dL for patients with CHD or diabetic patients with > or = 2 CHD risk factors. LDL-C is now calculated using the Mary calculation, which is a validated novel method providing better accuracy than the Friedewald equation in the estimation of LDL-C. Christopher SS et al. KENNEDY. 2013;310(19): 1626-0864 (http://education.[employer]/faq/NVJ822) CHOL/HDLC RATIO 2.7 <5.0 (calc) [facility] NON-HDL CHOLESTEROL 96 <130 mg/dL (calc) [facility] Comment: For patients with diabetes plus 1 major ASCVD risk factor, treating to a non-HDL-C goal of <100 mg/dL (LDL-C of <70 mg/dL) is considered a therapeutic option. Blood Blood / Unknown 03/14/2024 2 :19 PM EDT 03/14/2024 2:19 PM EDT Mandie Panda PA-C LAB - BLOOD DRAW Final Resul t [facility] [address] [address], [facility] [address] [place] [address] from Last 3 Months or Most Recently Relevant to Health Maintenance Insurance [facility] Care Teams Flower Grader Relationship Specialty Start Date End Date Pat Lau PA [address] [place] [address] PCP - General Primary Care 10/11/23
--- OUTSIDE RECORDS SUMMARY | 2025-02-12 16:51 | XMS_ITS | Clinical Summary ---
Author Organization [address] [place] [address] Address [address] [place] [address] Phone Care Team Providers Care Shredded Filler Machine Wrapper Layer Name Role Phone Pat Lau Primary Care [...] Cervical Cancer Screening: P ap Smear 08/18/2012 HIV Screening 01/03/2024 Hepatitis C Screening 01/03/2024 Social Influencers of Health Screening 01/03/2024 Depression Screening 06/12/2024 COVID-19 Vaccine (1 - 2023-2 5 season) 2025 Influenza Vaccine (#1) 2025 HIB Vaccines Aged [...] to complete this topic Insurance MEDICAID - [place] Care Teams Shredded Filler Machine Wrapper Layer Relationship Specialty Start Date End Date Pat Lau PA [address] [place] [address] PCP - General 07/22/24
== END 2025-02-12 15:09 | disposition home or self-care (01) ==
LOC: HO.HOS 14:35
PROVIDERS: PCP Student in an Organized Health Care Education/Training Program; Visit Provider Physician Assistant
DX: S90.32XA Contusion of left foot, initial encounter (principal)
CPT/HCPCS: 99213

== ENCOUNTER 2025-02-12 14:35 | Outpatient (REF) | payer MEDICAID, SELFPAY ==
--- NOTE | ~2025-02-12 | XR_ITS ---
EXAMINATION: XR FOOT, LEFT CLINICAL INFORMATION: M79.672 - Pain in left foot COMPARISON: None available. TECHNIQUE: AP, lateral, and oblique views of the left foot. FINDINGS: There is hallux valgus deformity. Joint spaces are preserved. Marginal marginal osteophyte is evident involving dorsal medial fifth metatarsal head. There is a small plantar calcaneal spur. XR/XR foot LT min 3V IMPRESSION: Hallux valgus deformity with small marginal osteophyte Electronically signed by: Adin Crain MD 02/12/2025 03:29 PM EDT
== END 2025-02-12 14:36 | disposition home or self-care (01) ==
LOC: HO.HOSX 14:35
PROVIDERS: Visit Provider Physician Assistant
DX: S90.32XA Contusion of left foot, initial encounter (principal); W20.8XXA Other cause of strike by thrown, projected or falling object, initial encounter
CPT/HCPCS: 73630; 99212

== ENCOUNTER → 2025-02-12 14:45 | Outpatient (BNV) | payer MEDICAID, SELFPAY | PROVIDERS: Visit Provider Radiology Diagnostic Radiology | DX: M79.672 Pain in left foot (principal); M20.12 Hallux valgus (acquired), left foot | CPT/HCPCS: 73630 ==

== ENCOUNTER 2025-03-31 08:04 | Outpatient (AMB) | payer MEDICAID, SELFPAY ==
--- OUTSIDE RECORDS SUMMARY | 2025-03-31 08:09 | XMS_ITS ---
[facility] Name [facility] Organization Unknown History of Medication Use Medication Directions Dispensed Refills Start Date End Date Stat us Acid Registered Public Surveyor (omeprazole) 03/25/2025 active albuterol sulfate 02/14/2025 act jennifer cyclobenzaprine 01/29/2025 activ e Encounters Encounter Type Encounter Reason Primary Diagnosis Location Date Ambulatory [facility]) 03/25/2025 Care Team Organization Name Specialty Phone Email Start Date End [facility] 03/27/2025 [facility] 03/25/2025
--- OUTSIDE RECORDS SUMMARY | 2025-03-31 08:09 | XMS_ITS | Patient Health Record ---
Author Organization [facility] Address [address] [place], [place] [id number] Care Team Providers Care Course Instructor Name Role Phone Ricardo Campos Primary Care Provider Cristi Alcala Unavailable [phone] Reason For Referral No Information Social History Tobacco Use: Social History Observation Description Date Details (start date - stop date) Current Smoker NA - NA Smoking: Question Answer Notes Are you a current smoker How often do you smoke cigarettes? every day Problems Problem Type SNOMED Code ICD Code Onset Dates Problem Status W/U Status Risk Notes Problem Morbid obesity (959271162) Morbid obesity (E66.01) Active confirmed Problem Palpitations (41244960) Palpitations (R00.2) Active confirmed Plan Of Treatment No Information Insurance Providers Payer Name Payer Address Payer Phone Subscriber Number Group Number Insured Name Patient Relationship to Insured Coverage Start Date Coverage End Date [facility] [id number] [place] Cardenas [phone] [id number] DelvinJavon wilsonhanie Self - patient is the insured Medical (General) History Medical History History ICD Code Asthmatic Palpitations Surgical History Surgery Date(Month/Year)
--- OUTSIDE RECORDS SUMMARY | 2025-03-31 08:09 | XMS_ITS | Clinical Summary ---
Author Organization [address] [place] [address] Address [address] [place] [address] Phone Care Team Providers Care Director Of Industrial Relations Name Role Phone Pat Lau Primary Care Pr ovider Unavailable Allergies Active Allergy Reactions Criticality Noted Date [...] Cervical Cancer Screening: P ap Smear 08/18/2012 HPV Vaccines (1 - 3-dose SCD M series) 08/18/2018 HIV Screening 01/03/2024 Hepatitis C Screening 01/03/2024 Social Influencers of Health Screening 01/03/2024 Depression Screening 06/12/2024 COVID-19 Vaccine (1 - 2023-2 5 season) 2025 Influenza Vaccine (#1) 2025 RSV Immunization Adult Patie nts (1 - 1-dose 75+ series) 08/18/2066 HIB Vaccines Aged Out No longer eligi [...] to complete this topic Insurance MEDICAID - [place] Care Teams Director Of Industrial Relations Relationship Specialty Start Date End Date Pat Lau PA PCP - General 07/22/24
--- OUTSIDE RECORDS SUMMARY | 2025-03-31 08:09 | XMS_ITS | Clinical Summary ---
Author Organization [facility] Address [address] [place] [address] Care Team Providers Care Education Supervisor Name Role Phone Pat Lau Primary Care Provider [phone] Source Comments PLEASE NOTE, if this patient [...] syndrome 12/12/2023 Mild intermittent asthma without complication Class 3 severe obesity due t o excess calories without serious comorbidity with body mass index (BMI) of 40.0 to 44.9 in adult 12/12/2023 Abnormal cervical Papanicolaou smear 12/12/2023 Vitamin D deficiency 12/12/2023 Chronic pain of both knees 06/09/2023 Overview (03/18/2024): Pain and locking of the knee hurts to extend when bent too long. Vertigo 10/10/2018 Plantar fasciitis 07/22/2018 Pain in both feet 07/10/2018 Encounters Date Type Department Care Team Description 02/12/2025 9:00 AM EDT Office Visit [address] [address] Gordy Baker MD 02/07/2025 8:40 AM EDT Office Visit [address] [address] Gordy Baker MD 01/22/2025 Results Follow-Up [address] [address] Gordy Baker MD 01/21/2025 8:40 AM EDT Office Visit [address] [address] Gordy Baker MD from Last 3 Months Family History Medical [...] Due Date Last Done Comments HPV Screening (self-collect) 1991 HPV Screening 1991 Imm-DTaP/Tdap/Td (1 - Tdap) 08/18/2010 Imm-Hepatitis B (1 of 3 - 19 + 3-dose series) 08/18/2010 Imm-Pneumococcal (1 of 2 - PCV) 08/18/2010 Imm-HPV (1 - 3-dose SCDM series) 08/18/2018 Relationship Safety Screening/Counseling 12/11/2024 12/12/2023 [id number] (1 - season) 2025 Imm-Influenza (#1) 2025 Annual Wellness (Adult): Ind icated (All Coverage) 03/14/2025 03/14/2024 Anxiety Screening 03/14/2025 03/14/2024 Cervical Cancer Screening 05/12/2025 Pap + HPV 05/12/2025 05/23/2024 Hypertension Screening (#1) 02/12/2026 Tobacco Screening 02/12/2026 02/12/2025 Lipid Screening 03/14/2027 03/14/2024 Pap Smear 05/23/2027 05/23/2024 Alcohol and Drug Screen Completed 07/02/19, 03/14/2024, 12/12/2023 Depression Annual Screen Completed 07/02/2024, 07/2023 HIV Screening Completed 01/21/2025, 08/2023, 01/12/2022 Hepatitis C Screening Completed 01/21/2025, 024 Cervical Ablation/Cold-Knife Conization Discontinued Cervical Cryotherapy Discontinued Colposcopy Discontinued Excision/Leep Discontinued HPV Genotyping Discontinued Vaginal [...] (BMI) of 40.0 to 44.9 in adult ([facility]) from Last 3 Months or Most Recently Relevant to Health Maintenance Results * HCG URINE MCKESSON (POCT) Urine Routine (02/12/2025 3:38 PM EDT) URINE HCG NEGATIVE NEGATIVE [facility] PO[facility] INTERNAL CONTROL PASS PASS [facility]- BACK OFF[facility] POCT Urine Urine specimen / Unknown 02/12/2025 3:38 PM EDT Gordy Baker MD LAB URINE AMBULATORY Final Resu lt [facility] POCT * HEPATITIS C AB W/RFLX HCV RNA, QT, RT PCR Routine (01/21/2025 9:17 AM EDT) HEPATITIS C ANTIBODY NON-REACT HEATHER NON-REACT HEATHER 01/22/2025 10:03 AM EDT [employer] Blood Blood / Unknown 01/21/2025 9 :17 AM EDT 01/22/2025 7:03 AM EDT [facility] - 01/22/2025 10:05 AM EDT . HCV antibody was non-reactive. There is no laboratory evidence of HCV infection. . In most cases, no further action is required. However, if recent HCV exposure is suspected, a test for HCV RNA (test code 93624) is suggested. . For additional information please refer to http://education.Meshfire.Dstillery (formerly [employer])/faq/GWC05s9 (This link is being provided for informational/ educational purposes only.) . us Gordy Baker MD LAB - BLOOD DRAW Final Result Performing Organization Address [facility] Co de Phone Number [employer] [address] [address], [employer] [address] [address] * HIV 1/2 AG & AB W/RFLX (4TH GEN) Routine (01/21/2025 9:17 AM EDT) Pathologist [facility] HIV Screen Final SEE NOTE 01/22/2025 10:03 AM EDT [employer] HIV AG/AB, 4TH GEN NON-REACT HEATHER NON-REACT HEATHER 01/22/2025 10:03 AM EDT [employer] Blood Blood / Unknown 01/21/2025 9 :17 AM EDT 01/22/2025 7:03 AM EDT [facility] - 01/22/2025 10:05 AM EDT HIV Negative . HIV-1 antigen and HIV-1/HIV-2 antibodies were not detected. There is no laboratory evidence of HIV infection. Gordy Baker MD LAB - BLOOD DRAW Final Result Performing Organization Address [facility] Co de Phone Number [employer] [address] [address], [employer] [address] [address] * SURESWAB ADVANCED BACTERIAL VAGINOSIS (BV), CT/NG, TMA Vaginal Vaginal Routine (01/21/2025 6:05 AM EDT) SURESWAB(R) ADV BACTERIAL VAGINOSIS (BV), TMA NEGATIVE NEGATIVE 01/22/2025 5:17 PM EDT [facility] CHLAMYDIA TRACHOMATIS RNA, TMA NOT DETECTED NOT DETECTED 01/22/2025 5:17 PM EDT [employer] NEISSERIA GONORRHOEAE RNA, TMA NOT DETECTED NOT DETECTED 01/22/2025 5:17 PM EDT [employer] Vaginal Vaginal structure / Unknown 01/21/2025 6:05 AM EDT 01/22/2025 5:23 AM EDT [facility] - 01/22/2025 5:18 PM EDT For additional information, please refer to https://education.[employer]rapeutics/faq/XLZ080 (This link is being provided for information/ educational purposes only.) Gordy Baker MD LAB - MICROBIOLOGY AMBULATORY F inal Result [employer] [address] [address], [employer] [address] [place] [address] * (ABNORMAL) THINPREP IMAGING PAP, HPV MRNA E6/E7 RFLEX HPV 16,18/45 CT/NG (05/23/2024 1:54 PM EST) CHLAMYDIA TRACHOMATIS RNA, TMA NOT DETECTED NOT DETECTED [facility] NEISSERIA GONORRHOEAE RNA, TMA NOT DETECTED NOT DETECTED [facility] COMMENT [facility] CLINICAL INFORMATION See Note [facility] Comment:None given LMP See Note [employer] Comment:NONE GIVEN PREV. PAP See Note [employer] Comment:NONE GIVEN PREV. BX See Note [employer] Comment:NONE GIVEN SOURCE See Note [employer] Comment:Cervix STATEMENT OF ADEQUACY See Note [employer] Comment: Satisfactory for evaluation. Endocervical/transformation zone component present. GENERAL CATEGORIZATION See Note(A) [employer] Comment:Cytology Results: Ep ithelial Cell Abnormality INTERPRETATION/RESU LT See Note(A) [employer] Comment:Low Grade Squamous I ntraepithelial Lesion (LSIL) COMMENT See Note [employer] Comment: This Pap test has been evaluated with computer assisted technology. SUPERVISOR ALTERATION WORKROOM See Note [facility] Better Bean Comment: MRC, CT(ASCP) CT screening location: [address] [address] PATHOLOGIST See Note [employer] Comment: Sayra Mayfield M.D. Direct , Board Certified in Anatomic and Clinical Pathology and Cytopathology (electronic signature) Consulting Pathologist [facility] [address] [place] [address] COMMENT [employer] HPV MRNA E6/E7 Detected(A ) Not Detected [facility] Comment: Methodology: Engine Cowling Installer-Mediated Amplification This assay detects E6/E7 viral messenger RNA (mRNA) from 14 high-risk HPV types (16,18,31,33,35,39,45,51,52,56,58,59,66,68). Cervical sources are required for HPV testing. If a vaginal source from a patient who has had a total hysterectomy with removal of cervix was submitted, please contact the testing laboratory for alternative testing options. For additional information, please refer to http://[employer]/faq/OUK376k5 (This link if provided for information/ educational purposes only.) Swab Cervix uteri structure / Unknown 05/23/2024 1:54 PM EST 05/24/2024 5:47 AM EST Narrative [employer] [facility] - 05/28/2024 6:22 AM EST EXPLANATORY NOTE: [...] test SurePath(TM) specimens have been determined by [employer]. The modifications have not been cleared or approved by the FDA. This assay has been validated pursuant to the CLIA regulations and is used for clinical purposes. For additional information, please refer to https://[employer]/faq/IJJ966 (This link is being provided for information/ educational purposes only.) us Liudmila Formisano DO LAB - PATHOLOGY AND CYTOLOGY A MBULATORY Final Result [employer] [address] [address], [employer] [address] [address] * LIPID PANEL (03/14/2024 2:19 PM EDT) CHOLESTEROL, TOTAL 151 <200 mg/dL [facility] HDL CHOLESTEROL 55 > OR = 50 mg/dL [facility] TRIGLYCERIDES 50 <150 mg/dL [employer] LDL-CHOLESTEROL 84 99 mg/dL (calc) [employer] Comment: Reference range: <100 Desirable range <100 mg/dL for primary prevention; <70 mg/dL for patients with CHD or diabetic patients with > or = 2 CHD risk factors. LDL-C is now calculated using the Mary calculation, which is a validated novel method providing better accuracy than the Friedewald equation in the estimation of LDL-C. Christopher SS et al. KENNEDY. 2013;310(19): 3557-8414 (http://education.Burning Sky Software/faq/WSB133) CHOL/HDLC RATIO 2.7 <5.0 (calc) [facility] NON-HDL CHOLESTEROL 96 <130 mg/dL (calc) [facility] Comment: For patients with diabetes plus 1 major ASCVD risk factor, treating to a non-HDL-C goal of <100 mg/dL (LDL-C of <70 mg/dL) is considered a therapeutic option. Blood Blood / Unknown 03/14/2024 2 :19 PM EDT 03/14/2024 2:19 PM EDT us Mandie Panda PA-C LAB - BLOOD DRAW Final Resul t [facility] [employer] [address] [place] [address], [employer] [address] [place] [address] from Last 3 Months or Most Recently Relevant to Health Maintenance Insurance [address] [employer] Care Teams Education Supervisor Relationship Specialty Start Date End Date Pat Lau PA [address] [place] [address] PCP - General Primary Care 10/11/23
--- OUTSIDE RECORDS SUMMARY | 2025-03-31 08:10 | XMS_ITS | Clinical Summary ---
Author Organization [facility] [facility] Address [address] [place] [address] Care Team Providers Care Glass Cut Off Tender Name Role Phone Unavailable Primary Care Provider Unavailabl e Encounters Date Type Department Care Team Description 12/31/2024 Population Health Risk Score [facility] (C3) Department [address] [facility] [address] [place] [address] Provider, Population Health Generic from [...] Cancer Screening 08/18/2021 HPV/Cotest 08/18/2021 COVID-19 Vaccine (1 - season) 2025 Influenza Vaccine (#1) 2025 Zoster Vaccines (1 of 2) 08/18/2041 RSV Patients and Patients Aged 60 years or older (1 - 1-dose 75+ series) 08/18/2066 HIV Screening Completed 01/21/2025, 01/10, 03/14/2024, Additional history exists HIB Vaccines Aged Out No longer eligi [...]
[2025-03-31 08:11] VITALS: BMI 41.3
--- NOTE | 2025-03-31 08:11 | A.OFFVIS_ITS ---
Vital Signs 03/31/25 08:11 Height 5 ft 9 in Weight 280 lb BMI 41.3 Intake Visit Reasons: Contusion of left foot, initial encounter Intake Note: Kelsey is a 34 year old female who presents today as a new patient for an evaluation of her contusion of left foot. Pt reports injury occurred on 02/09/25 and she had dropped a pot on the top of her foot. She states pain has worsened since the injury occurred and she is unable to bear weight and finds it difficult to ambulate. She was seen at [facility] ortho on 02/12/25 where they recommended patient to utilize a walking boot however pt declined. She has tried Biofreeze, Aleve, and ibuprofen and found very minimal relief with the biofreeze only. Foot X-ray IMPRESSION: Hallux valgus deformity with small marginal osteophyte Allergies No Known Allergies Allergy (Verified 03/31/25 08:12) HPI HPI Contusion of left foot, initial encounter: Details: The patient is a 34-year-old female presents with an undiagnosed connective tissue disorder who presents for left ankle pain. She reports significant ankle pain following a 2.5 mile hike this past weekend. She has been treating it with Biofreeze which has not helped. She also complains of right foot arch muscle spasms causes her big toe to flex downward and her second toe to spasm upward. 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 Social History: - The patient is on a weight loss journey and was engaging in regular exercise before the injury. - She recently moved to [facility] and is in the process of transferring her healthcare. 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 No clinical signs of infection. Neuro: Protective sensation grossly intact to bilateral lower extremities MSK: Moderate tenderness on palpation over the extensor tendons of the left ankle worst on maximum plantar flexion. Mild pain on resisted dorsiflexion and plantar flexion of the ankle. Moderate pain on direct palpation over the 2nd tarsometatarsal joint. Moderate left foot arch on weight-bearing, Normal arch right foot on weight- bearing. Mild right hallux valgus deformity, moderate left hallux valgus deformity. Mild dorsal extension bilateral 2nd MTP, negative wendy's test. Flexible flexion deformity PIPJ 2-5 bilateral feet. Genu valgum and recurvatum deformity. Results Reviewed Results Reviewed: Podiatry X-ray Read: 02/12/2025 X-ray left foot 3 nonweightbearing views (AP, MO, Lateral) reviewed which shows no fractures, dislocations, or gross abnormalities. Mild joint space narrowing left 2nd TMT and 3rd TMT. Moderate plantar heel spur 7mm x 5mm. I personally reviewed the imaging and my findings are listed above. Assessment & Plan Assessment & Plan (1) Tendinitis of left ankle: Code(s): M77.52 - Other enthesopathy of left foot and ankle Category: Medical Plan: * Reviewed etiology of her ankle tendinitis. * Rx Medrol dose pack * Recommended stretching and range of motion exercises. * Follow up in 3 weeks. May require physical therapy if symptoms persist. (2) Muscle spasm of right lower extremity: Code(s): M62.838 - Other muscle spasm Category: Medical Plan: * Ordered labs: CBC, BMP, Magnesium , to rule out electrolyte imbalance. * Recommended Super[employer] orthotics to correct her arch and decrease mechanical loadng on her abductor hallucis muscle which may be in spasm during periods of prolonged walking/activity. (3) Connective tissue disorder: Code(s): M35.9 - Systemic involvement of connective tissue, unspecified Category: Medical Plan: * Discussed that she has hyperlaxity of her pedal joints, specifically her medial column and her 1st Metatarsal-phalangeal joint and digits. * She has early 2nd MTP instability bilaterally. Recommended hammertoe crest pads. Orders: Orders Complete Blood Count Auto Diff Today M62.838 - Other muscle spasm Basic Metabolic Panel Today M62.838 - Other muscle spasm Magnesium Today M62.838 - Other muscle spasm Medications: New methylprednisolone (Medrol (Giovanny)) Take 6 tablets on day 1, 5 tablets on day 2, 4 tablets on day 3, 3 tablets on day 4, 2 tablets on day 5, and 1 tablet on day 6. 4 mg PO DAILY 21 ea 0RF extensor tendinitis of the ankle M77.52 - Other enthesopathy of left foot and ankle Coding Level of Care Code New Pt Level 4 (02569) Diagnoses Tendinitis of left ankle M77.52 Muscle spasm of right lower extremity M62.838 Connective tissue disorder M35.9 Time Spent (min) 35
== END 2025-03-31 08:42 | disposition home or self-care (01) ==
PROVIDERS: Visit Provider Student in an Organized Health Care Education/Training Program
DX: M77.52 Other enthesopathy of left foot and ankle (principal); M62.838 Other muscle spasm; M35.9 Systemic involvement of connective tissue, unspecified
CPT/HCPCS: 99204

== ENCOUNTER → 2025-03-31 08:04 | Outpatient (BNVA) | payer MEDICAID, SELFPAY | PROVIDERS: Visit Provider Student in an Organized Health Care Education/Training Program | DX: M77.52 Other enthesopathy of left foot and ankle (principal); M62.838 Other muscle spasm; M35.9 Systemic involvement of connective tissue, unspecified | CPT/HCPCS: 99202 ==

== ENCOUNTER 2025-04-09 09:32 | Outpatient (AMB) | payer OTHER, MEDICAID, SELFPAY ==
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
[2025-04-09 09:39] VITALS: BMI 41.3
--- OUTSIDE RECORDS SUMMARY | 2025-04-09 11:20 | XMS_ITS | Clinical Summary ---
Author Organization [employer] Address [address] [facility] [address] [place] [address] Care Team Providers Care Blade Grinder Name Role Phone Unavailable Primary Care Provider Unavailabl e Social History Tobacco Use Types Packs/Day Years [...] 08/18/2021 HPV/Cotest 08/18/2021 COVID-19 Vaccine (1 - 2023-2 5 season) 2025 Influenza Vaccine (#1) 2025 Zoster Vaccines (1 of 2) 08/18/2041 RSV Patients and Patients Aged 60 years or older (1 - 1-dose 75+ series) 08/18/2066 HIV Screening Completed 01/21/2025, 03/14/2024, 01/12/2022 HIB Vaccines Aged Out No [...]
--- OUTSIDE RECORDS SUMMARY | 2025-04-09 11:20 | XMS_ITS | Clinical Summary ---
Author Organization [facility] Address [address] [place] [address] Care Team Providers Care Resident Medical Officer Name Role Phone Pat Lau Primary Care Provider [phone] Source Comments PLEASE NOTE, if this patient [...] Description 02/12/2025 9:00 AM EDT Office Visit [address] [address] Gordy Baker MD 02/07/2025 8:40 AM EDT Office Visit [address] [address] Gordy Baker MD 01/22/2025 Results Follow-Up [address] [address] Gordy Baker MD 01/21/2025 8:40 AM EDT Office Visit [address] [address] Gordy Baker MD from Last 3 Months [...] series) 08/18/2018 Relationship Safety Screening/Counseling 12/11/2024 12/12/2023 [id number] (1 - season) 2025 Imm-Influenza (#1) 2025 [...] (BMI) of 40.0 to 44.9 in adult ([facility]) from Last 3 Months or Most Recently Relevant to Health Maintenance Results * HCG URINE MCKESSON (POCT) Urine Routine (02/12/2025 3:38 PM EDT) URINE HCG NEGATIVE NEGATIVE [facility] POCT INTERNAL CONTROL PASS PASS [facility]- BACK OFFICE POCT Urine Urine specimen / Unknown 02/12/2025 3:38 PM EDT Gordy Baker MD LAB URINE AMBULATORY Final Resu lt [facility] POCT * HEPATITIS C AB W/RFLX HCV RNA, QT, RT PCR Routine (01/21/2025 9:17 AM EDT) HEPATITIS C ANTIBODY NON-REACT HEATHER NON-REACT HEATHER 01/22/2025 10:03 AM EDT [facility] Blood Blood / Unknown 01/21/2025 9 :17 AM EDT 01/22/2025 7:03 AM EDT Narrative [facility] - 01/22/2025 10:05 AM EDT . HCV antibody was non-reactive. There is no laboratory evidence of HCV infection. . In most cases, no further action is required. However, if recent HCV exposure is suspected, a test for HCV RNA (test code 21944) is suggested. . For additional information please refer to http://education.Amazing Photo [employer].Patientco/faq/ZLM43k0 (This link is being provided for informational/ educational purposes only.) . us Gordy Baker MD LAB - BLOOD DRAW Final Result Performing Organization Address [facility] Co de Phone Number Milk [address] [address], [place] [address] [address] * HIV 1/2 AG & AB W/RFLX (4TH GEN) Routine (01/21/2025 9:17 AM EDT) Pathologist [facility] HIV Screen Final SEE NOTE 01/22/2025 10:03 AM EDT Milk [facility] HIV AG/AB, 4TH GEN NON-REACT HEATHER NON-REACT HEATHER 01/22/2025 10:03 AM EDT Milk [facility] Blood Blood / Unknown 01/21/2025 9 :17 AM EDT 01/22/2025 7:03 AM EDT [employer] [facility] - 01/22/2025 10:05 AM EDT HIV Negative . HIV-1 antigen and HIV-1/HIV-2 antibodies were not detected. There is no laboratory evidence of HIV infection. Gordy Baker MD LAB - BLOOD DRAW Final Result Performing Organization Address [facility] Co de Phone Number [facility] [address] [address], [place] [address] [address] * SURESWAB ADVANCED BACTERIAL VAGINOSIS (BV), CT/NG, TMA Vaginal Vaginal Routine (01/21/2025 6:05 AM EDT) SURESWAB(R) ADV BACTERIAL VAGINOSIS (BV), TMA NEGATIVE NEGATIVE 01/22/2025 5:17 PM EDT Milk [facility] CHLAMYDIA TRACHOMATIS RNA, TMA NOT DETECTED NOT DETECTED 01/22/2025 5:17 PM EDT Milk [facility] NEISSERIA GONORRHOEAE RNA, TMA NOT DETECTED NOT DETECTED 01/22/2025 5:17 PM EDT Milk [facility] Vaginal Vaginal structure / Unknown 01/21/2025 6:05 AM EDT 01/22/2025 5:23 AM EDT [employer] [facility] - 01/22/2025 5:18 PM EDT For additional information, please refer to https://education.TheySay/faq/XPR453 (This link is being provided for information/ educational purposes only.) Gordy Baker MD LAB - MICROBIOLOGY AMBULATORY F inal Result [email or web address] [address] [address], [employer] [address] [place] [address] * (ABNORMAL) THINPREP IMAGING PAP, HPV MRNA E6/E7 RFLEX HPV 16,18/45 CT/NG (05/23/2024 1:54 PM EST) CHLAMYDIA TRACHOMATIS RNA, TMA NOT DETECTED NOT DETECTED [employer] NEISSERIA GONORRHOEAE RNA, TMA NOT DETECTED NOT DETECTED [employer] COMMENT [employer] CLINICAL INFORMATION See Note [employer] Comment:None given LMP See Note [employer] Comment:NONE GIVEN PREV. PAP See Note [employer] Comment:NONE GIVEN PREV. BX See Note [employer] Comment:NONE GIVEN SOURCE See Note [employer] Comment:Cervix STATEMENT OF ADEQUACY See Note [employer] Comment: Satisfactory for evaluation. Endocervical/transformation zone component present. GENERAL CATEGORIZATION See Note(A) [employer] Comment:Cytology Results: Ep ithelial Cell Abnormality INTERPRETATION/RESU LT See Note(A) [employer] Comment:Low Grade Squamous I ntraepithelial Lesion (LSIL) COMMENT See Note [employer] Comment: This Pap test has been evaluated with computer assisted technology. SHEET METAL FABRICATOR See Note [facility] [employer] Comment: MRC, CT(ASCP) CT screening location: [address] [address] PATHOLOGIST See Note [employer] Comment: Sayra Mayfield M.D. Direct , Board Certified in Anatomic and Clinical Pathology and Cytopathology (electronic signature) Consulting Pathologist [facility] Pathology [address] [place] [address] COMMENT [employer] HPV MRNA E6/E7 Detected(A ) Not Detected [employer] Comment: Methodology: Chain Forming Machine Operator-Mediated Amplification This assay detects E6/E7 viral messenger RNA (mRNA) from 14 high-risk HPV types (16,18,31,33,35,39,45,51,52,56,58,59,66,68). Cervical sources are required for HPV testing. If a vaginal source from a patient who has had a total hysterectomy with removal of cervix was submitted, please contact the testing laboratory for alternative testing options. For additional information, please refer to http://Snehta.TheySay/faq/MVI731w3 (This link if provided for information/ educational purposes only.) Swab Cervix uteri structure / Unknown 05/23/2024 1:54 PM EST 05/24/2024 5:47 AM EST Narrative [employer] [facility] - 05/28/2024 6:22 AM EST EXPLANATORY NOTE: [...] test SurePath(TM) specimens have been determined by [employer]. The modifications have not been cleared or approved by the FDA. This assay has been validated pursuant to the CLIA regulations and is used for clinical purposes. For additional information, please refer to https://Snehta.TheySay/faq/XRC654 (This link is being provided for information/ educational purposes only.) us Liudmila Formisano DO LAB - PATHOLOGY AND CYTOLOGY A MBULATORY Final Result [facility] [address] [address], [facility] [address] [address] * LIPID PANEL (03/14/2024 2:19 PM EDT) CHOLESTEROL, TOTAL 151 <200 mg/dL Milk [facility] HDL CHOLESTEROL 55 > OR = 50 mg/dL Milk [facility] TRIGLYCERIDES 50 <150 mg/dL Milk [facility] LDL-CHOLESTEROL 84 99 mg/dL (calc) [employer] Comment: Reference range: <100 Desirable range <100 mg/dL for primary prevention; <70 mg/dL for patients with CHD or diabetic patients with > or = 2 CHD risk factors. LDL-C is now calculated using the Mary calculation, which is a validated novel method providing better accuracy than the Friedewald equation in the estimation of LDL-C. Christopher SS et al. KENNEDY. 2013;310(19): 3785-1172 (http://education.[employer]/faq/HAU752) CHOL/HDLC RATIO 2.7 <5.0 (calc) [facility] NON-HDL CHOLESTEROL 96 <130 mg/dL (calc) [employer] Comment: For patients with diabetes plus 1 major ASCVD risk factor, treating to a non-HDL-C goal of <100 mg/dL (LDL-C of <70 mg/dL) is considered a therapeutic option. Blood Blood / Unknown 03/14/2024 2 :19 PM EDT 03/14/2024 2:19 PM EDT us Mandie Panda PA-C LAB - BLOOD DRAW Final Resul t [email or web address] [address] [place] [address], [employer] [address] [place] [address] from Last 3 Months or Most Recently Relevant to Health Maintenance Insurance [address] [employer] Care Teams Resident Medical Officer Relationship Specialty Start Date End Date Pat Lau PA [address] [place] [address] PCP - General Primary Care 10/11/23
--- OUTSIDE RECORDS SUMMARY | 2025-04-09 11:20 | XMS_ITS | Patient Health Record ---
Author Organization [facility] Address [address] [facility] [place], [place] [id number] Care Team Providers Care Galvanizer Name Role Phone Ricardo Campos Primary Care Provider Cristi Alcala Unavailable [phone] Reason For Referral No Information Social History Tobacco Use: Social History Observation Description Date Details (start date - stop date) Current Smoker NA - NA Smoking: Question Answer Notes Are you a current smoker How often do you smoke cigarettes? every day Problems Problem Type SNOMED Code ICD Code Onset Dates Problem Status W/U Status Risk Notes Problem Morbid obesity (938952815) Morbid obesity (E66.01) Active confirmed Problem Palpitations (17290634) Palpitations (R00.2) Active confirmed Plan Of Treatment No Information Insurance Providers Payer Name Payer Address Payer Phone Subscriber Number Group Number Insured Name Patient Relationship to Insured Coverage Start Date Coverage End Date [facility] [address] JUAN Cardenas [phone] [id number] DelvinJavon wilsonhanie Self - patient is the insured Medical (General) History Medical History History ICD Code Asthmatic Palpitations Surgical History Surgery Date(Month/Year)
== END 2025-04-09 10:32 | disposition home or self-care (01) ==
PROVIDERS: PCP Dentist General Practice; Visit Provider Physician Assistant
DX: M75.22 Bicipital tendinitis, left shoulder (principal); G25.89 Other specified extrapyramidal and movement disorders; M75.82 Other shoulder lesions, left shoulder
CPT/HCPCS: 99213; G2211

== ENCOUNTER 2025-04-09 09:32 | Outpatient (REF) | payer OTHER, MEDICAID, SELFPAY ==
--- NOTE | ~2025-04-09 | XR_ITS ---
EXAMINATION: XR SHOULDER, LEFT CLINICAL INFORMATION: M25.512 - Pain in left shoulder COMPARISON: None available. TECHNIQUE: Three views of the left shoulder. FINDINGS: The bones and soft tissues are normal. No fracture. Glenohumeral and acromioclavicular alignment is anatomic with normal joint space. No abnormal soft tissue calcifications. XR/XR shoulder LT min 2V IMPRESSION: Normal left shoulder. Electronically signed by: Shae Mckeon MD 04/09/2025 10:04 AM EDT
--- OUTSIDE RECORDS SUMMARY | 2025-04-09 11:33 | XMS_ITS | Clinical Summary ---
Author Organization [address] [place] [address] Address [address] [place] [address] Phone Care Team Providers Care Cutting Machine Offbearer Name Role Phone Pat Lau Primary Care [...] topic Insurance MEDICA[place] - [place] Care Teams Cutting Machine Offbearer Relationship Specialty Start Date End Date Pat Lau PA PCP - General 07/22/24
== END 2025-04-09 09:33 | disposition home or self-care (01) ==
LOC: HO.HOSX 09:32
PROVIDERS: PCP Dentist General Practice; Visit Provider Physician Assistant
DX: M75.22 Bicipital tendinitis, left shoulder (principal); G25.89 Other specified extrapyramidal and movement disorders; M75.82 Other shoulder lesions, left shoulder
CPT/HCPCS: 73030

== ENCOUNTER → 2025-04-09 09:45 | Outpatient (BNV) | payer OTHER, MEDICAID, SELFPAY | PROVIDERS: PCP Dentist General Practice; Visit Provider Radiology Diagnostic Radiology | DX: M25.512 Pain in left shoulder (principal) | CPT/HCPCS: 73030 ==

== ENCOUNTER 2025-04-14 12:32 | Outpatient (REF) | payer OTHER, MEDICAID, SELFPAY ==
--- NOTE | ~2025-04-14 | MR_ITS ---
EXAMINATION: MR SHOULDER WITHOUT CONTRAST, LEFT CLINICAL INFORMATION: Injury, evaluate rotator cuff COMPARISON: X-ray 04/09/2025 TECHNIQUE: MRI of the shoulder without contrast was performed on a high-field scanner. FINDINGS: ROTATOR CUFF: Supraspinatus: Mild tendinosis Infraspinatus: Mild tendinosis Teres minor: Intact Subscapularis: Moderate tendinosis No muscle atrophy or fatty infiltration. BICEPS: Intact CORACOACROMIAL ARCH: The undersurface of the acromion is curved with no subacromial spur. The acromioclavicular joint is normal. LABRUM/CAPSULE: No labral tear is seen. Intact inferior capsule GLENOHUMERAL JOINT/MARROW: 10 x 7 x 8 mm lesion in the lateral aspect of the humeral neck, right-T2, low on T1, lobulated well-defined margins. No surrounding marrow edema. This overall has a nonaggressive appearance, probably reflecting a low-grade chondroid lesion. This is faintly seen on the prior x-ray. No fracture. No high-grade chondral loss. No significant joint effusion. No axillary lymphadenopathy. MR/MR shoulder LT wo con IMPRESSION: * Mild supraspinatus and infraspinatus tendinosis. Moderate subscapularis tendinosis. No measurable rotator cuff tear. * No labral tear is identified. * 10 mm T2 bright lesion in the humeral neck, with features as detailed above. This overall has a nonaggressive appearance, probably reflecting a low-grade chondroid lesion. Clinically correlate.. Recommend radiographic follow-up. Follow-up MRI for reassessment as clinically warranted. Electronically signed by: David Hope MD 04/15/2025 07:41 AM EST
--- OUTSIDE RECORDS SUMMARY | 2025-04-14 15:47 | XMS_ITS | Patient Health Record ---
Author Organization [facility] Address [address] [facility] [address] [place], [place] [id number] Care Team Providers Care Butter Fat Tester Name Role Phone Ricardo Campos Primary Care Provider Cristi Alcala Unavailable [phone] Reason For Referral No Information Social History Tobacco Use: Social History Observation Description Date Details (start date - stop date) Current Smoker NA - NA Smoking: Question Answer Notes Are you a current smoker How often do you smoke cigarettes? every day Problems Problem Type SNOMED Code ICD Code Onset Dates Problem Status W/U Status Risk Notes Problem Morbid obesity (608764105) Morbid obesity (E66.01) Active confirmed Problem Palpitations (79285438) Palpitations (R00.2) Active confirmed Plan Of Treatment No Information Insurance Providers Payer Name Payer Address Payer Phone Subscriber Number Group Number Insured Name Patient Relationship to Insured Coverage Start Date Coverage End Date [facility] [address] JUAN Cardenas [phone] [id number] DelvinJavon wilsonhanie Self - patient is the insured Medical (General) History Medical History History ICD Code Asthmatic Palpitations Surgical History Surgery Date(Month/Year)
--- OUTSIDE RECORDS SUMMARY | 2025-04-14 15:54 | XMS_ITS | Clinical Summary ---
Author Organization [employer] Address [address] [facility] 7t [place] [address] Care Team Providers Care Deputy County Counsel Name Role Phone Unavailable Primary Care Provider [...]
== END 2025-04-14 12:33 | disposition home or self-care (01) ==
LOC: HO.MRI 12:32
PROVIDERS: Visit Provider Physician Assistant
DX: S46.002D Unspecified injury of muscle(s) and tendon(s) of the rotator cuff of left shoulder, subsequent encounter (principal)
CPT/HCPCS: 73221

== ENCOUNTER → 2025-04-14 12:46 | Outpatient (BNV) | payer OTHER, MEDICAID, SELFPAY | PROVIDERS: Visit Provider Radiology Diagnostic Ultrasound | DX: S46.009A Unspecified injury of muscle(s) and tendon(s) of the rotator cuff of unspecified shoulder, initial encounter (principal) | CPT/HCPCS: 73221 ==

== ENCOUNTER 2025-04-16 11:53 | Outpatient (AMB) | payer OTHER, MEDICAID, SELFPAY ==
[2025-04-16 12:06] VITALS: BMI 41.3
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
--- OUTSIDE RECORDS SUMMARY | 2025-04-16 14:33 | XMS_ITS | Clinical Summary ---
Author Organization [employer] Address [address] [facility] 7t [place] [address] Care Team Providers Care Rewinder Operator Helper Name Role Phone Unavailable Primary Care Provider [...]
--- OUTSIDE RECORDS SUMMARY | 2025-04-16 14:33 | XMS_ITS | Clinical Summary ---
Author Organization [address] [place] [address] Address [address] [place] [address] Phone Care Team Providers Care Flight Coordinator Name Role Phone Pat Lau Primary Care [...] 10/10/2023 11:02 AM EDT Plan of Treatment Upcoming Encounters Date Type Department Care Team ([facility] Contact Info) Description 05/16/2025 10:00 AM EST Office Visit Bariatric Surgery - [place] [address] [place] [address] [facility] Peoples [facility] [address] [facility] [address] Health Maintenance Due Date Last Done Comments [...] topic Insurance MEDICAID - [place] Care Teams Flight Coordinator Relationship Specialty Start Date End Date Pat Lau PA [address] [place] [address] PCP - General 04/11/25
--- OUTSIDE RECORDS SUMMARY | 2025-04-16 14:33 | XMS_ITS | Patient Health Record ---
Author Organization [facility] Address [address] [place], [place] [id number] Care Team Providers Care Student Services Director Name Role Phone Ricardo Campos Primary Care Provider Cristi Alcala Unavailable [phone] Reason For Referral No Information Social History Tobacco Use: Social History Observation Description Date Details (start date - stop date) Current Smoker NA - NA Smoking: Question Answer Notes Are you a current smoker How often do you smoke cigarettes? every day Problems Problem Type SNOMED Code ICD Code Onset Dates Problem Status W/U Status Risk Notes Problem Morbid obesity (080800900) Morbid obesity (E66.01) Active confirmed Problem Palpitations (19940377) Palpitations (R00.2) Active confirmed Plan Of Treatment No Information Insurance Providers Payer Name Payer Address Payer Phone Subscriber Number Group Number Insured Name Patient Relationship to Insured Coverage Start Date Coverage End Date [facility] [address] JUAN Cardenas [phone] [id number] RadhaJavonKelsey Self - patient is the insured Medical (General) History Medical History History ICD Code Asthmatic Palpitations Surgical History Surgery Date(Month/Year)
== END 2025-04-16 12:14 | disposition home or self-care (01) ==
LOC: HO.HOS 11:53
PROVIDERS: Visit Provider Physician Assistant
DX: M75.82 Other shoulder lesions, left shoulder (principal)
CPT/HCPCS: 99213; G2211

== ENCOUNTER → 2025-04-16 11:53 | Outpatient (BNVA) | payer OTHER, MEDICAID, SELFPAY | PROVIDERS: Visit Provider Physician Assistant | DX: M75.82 Other shoulder lesions, left shoulder (principal) | CPT/HCPCS: 20610; J0665; J1100; J2003 ==

== ENCOUNTER 2025-04-22 12:41 | Outpatient (REF) | payer OTHER, MEDICAID, SELFPAY ==
[2025-04-22 13:31] LABS: MANUAL DIFF FLAG NO
[2025-04-22 13:50] LABS: Hematocrit 36.6 % (37.0-47.0); Hemoglobin 12.0 g/dl (12.0-16.0); Imm Gran Abs Auto 0.02 X10*3/uL (0.00-0.03); Imm Gran Pct Auto 0.3 % (0.0-0.4); Lymphocytes Absolute Auto 3.1 X10*3/uL (1.2-4.9); Mean Corpuscular HGB Conc 32.8 g/dl (31.0-35.0); Mean Corpuscular Hemoglobin 28.1 pg (27.0-33.0); Mean Corpuscular Volume 85.7 fL (80.0-98.0); NRBC Abs Auto 0.000 X10*3/uL (0.0-0.012); NRBC Pct Auto 0.0 /100WBC (0.0-0.2); Platelet Count 368 X10*3/uL (160-400); Red Blood Count 4.27 X10*6/uL (4.20-5.50); White Blood Count 7.2 X10*3/uL (4.8-10.8)
[2025-04-22 14:01] LABS: Anion Gap 10 (12-20); Blood Urea Nitrogen 16 mg/dL (9-16); Calcium 9.1 mg/dL (8.4-10.2); Carbon Dioxide 24 mmol/L (22-29); Chloride 107 mmol/L (96-108); Estimated Glomerular Filt Rate > 60; Magnesium 1.9 mg/dL (1.6-2.6); Potassium 3.9 mmol/L (3.3-5.1); Sodium 137 mmol/L (135-145)
--- OUTSIDE RECORDS SUMMARY | 2025-04-22 14:27 | XMS_ITS | Clinical Summary ---
Author Organization [email or web address] Address [address] [place] [address] Care Team Providers Care Software Quality Test Engineer Name Role Phone Unavailable Primary Care Provider [...]
--- OUTSIDE RECORDS SUMMARY | 2025-04-22 14:27 | XMS_ITS | Clinical Summary ---
Author Organization [facility] Address [address] [place] [address] Care Team Providers Care Oceanography Teacher Name Role Phone Pat Lau Primary Care Provider [phone] Source Comments PLEASE NOTE, if this patient [...] Description 02/12/2025 9:00 AM EDT Office Visit [address] [address] Gordy Baker MD 02/07/2025 8:40 AM EDT Office Visit [address] [address] Gordy Baker MD 01/22/2025 Results Follow-Up [address] [address] Gordy Baker MD 01/21/2025 8:40 AM EDT Office Visit [address] [address] Gordy Baker MD from Last 3 Months [...] series) 08/18/2018 Relationship Safety Screening/Counseling 12/11/2024 12/12/2023 [id number] (1 - season) 2025 Imm-Influenza (#1) 2025 Annual Wellness (Adult): Ind icated (All Coverage) 03/14/2025 03/14/2024 Anxiety Screening 03/14/2025 03/14/2024 Cervical Cancer Screening 05/12/2025 Pap + HPV 05/12/2025 05/23/2024 Hypertension Screening (#1) 02/12/2026 Tobacco Screening 02/12/2026 02/12/2025 Lipid Screening 03/14/2027 03/14/2024 Pap Smear 05/23/2027 05/23/2024 Imm-RSV (adult) (1 - 1-dose 75+ series) 08/18/2066 Alcohol and Drug Screen Completed 07/02/19 25, 03/14/2024, 12/12/2023 Depression Annual Screen Completed 07/02/2024, 07/2023 HIV Screening Completed 01/21/2025, 08/2023, 01/12/2022 Hepatitis C Screening Completed 01/21/2025, 024 Cervical Ablation/Cold-Knife Conization Discontinued Cervical Cryotherapy Discontinued Colposcopy Discontinued Excision/Leep Discontinued HPV Genotyping Discontinued Vaginal Pap Discontinued Vulvoscopy Discontinued Procedures Procedure Name Priority Date/Time Associated Diagnosis Comments IMAGING SCANNED DOCUMENT 04/09/2025 3:00 AM EDT REFERRAL TO ORTHOPEDICS Routine 04/09/2025 3:00 AM EDT Bilateral wrist pain HCG URINE MCKESSON (POCT) Routine 02/12/2025 3:38 [...] (BMI) of 40.0 to 44.9 in adult ([facility]) from Last 3 Months or Most Recently Relevant to Health Maintenance Results * IMAGING SCANNED DOCUMENT (04/09/2025 3:00 AM EDT) 04/09/2025 3:00 AM EDT us Pat RAMSEY SCAN IMAGING Final Result * REFERRAL TO ORTHOPEDICS (04/09/2025 3:00 AM EDT) 04/09/2025 3:00 AM EDT us Pat RAMSEY REFERRAL Final Result * HCG URINE MCKESSON (POCT) Urine Routine [...] HEATHER NON-REACT HEATHER 01/22/2025 10:03 AM EDT [facility] Blood Blood / Unknown 01/21/2025 9 :17 AM EDT 01/22/2025 7:03 AM EDT Narrative [facility] [facility] - 01/22/2025 10:05 AM EDT . HCV antibody was non-reactive. There is no laboratory evidence of HCV infection. . In most cases, no further action is required. However, if recent HCV exposure is suspected, a test for HCV RNA (test code 55423) is suggested. . For additional information please refer to http://education.[employer]faq/VHG10j8 (This link is being provided for informational/ educational purposes only.) . Gordy Baker MD LAB - BLOOD DRAW Final Result Performing Organization Address [facility] de Phone Number [facility] [address] [place] [address], [facility] [address] * HIV 1/2 AG & AB W/RFLX (4TH GEN) Routine (01/21/2025 9:17 AM EDT) [facility] HIV Screen Final SEE NOTE 01/22/2025 10:03 AM EDT [facility] HIV AG/AB, 4TH GEN NON-REACT HEATHER NON-REACT HEATHER 01/22/2025 10:03 AM EDT [facility] Blood Blood / Unknown 01/21/2025 9 :17 AM EDT 01/22/2025 7:03 AM EDT [employer] - 01/22/2025 10:05 AM EDT HIV Negative . HIV-1 antigen and HIV-1/HIV-2 antibodies were not detected. There is no laboratory evidence of HIV infection. us Gordy Baker MD LAB - BLOOD DRAW Final Result Performing Organization Address [facility] de Phone Number [facility] [address] [place] [address], [employer] [address] * SURESWAB ADVANCED BACTERIAL VAGINOSIS (BV), CT/NG, TMA Vaginal Vaginal Routine (01/21/2025 6:05 AM EDT) SURESWAB(R) ADV BACTERIAL VAGINOSIS (BV), TMA NEGATIVE NEGATIVE 01/22/2025 5:17 PM EDT [facility] CHLAMYDIA TRACHOMATIS RNA, TMA NOT DETECTED NOT DETECTED 01/22/2025 5:17 PM EDT [facility] NEISSERIA GONORRHOEAE RNA, TMA NOT DETECTED NOT DETECTED 01/22/2025 5:17 PM EDT [facility] Vaginal Vaginal structure / Unknown 01/21/2025 6:05 AM EDT 01/22/2025 5:23 AM EDT Narrative [facility] - 01/22/2025 5:18 PM EDT For additional information, please refer to https://education.[employer]faq/IMM458 (This link is being provided for information/ educational purposes only.) Gordy Baker MD LAB - MICROBIOLOGY AMBULATORY F inal Result [facility] [address] [address], [facility] [address] [address] * (ABNORMAL) THINPREP IMAGING PAP, HPV MRNA E6/E7 RFLEX HPV 16,18/45 CT/NG (05/23/2024 1:54 PM EST) Pathologist [facility] CHLAMYDIA TRACHOMATIS RNA, TMA NOT DETECTED NOT DETECTED [facility] NEISSERIA GONORRHOEAE RNA, TMA NOT DETECTED NOT DETECTED [facility] COMMENT [facility] CLINICAL INFORMATION See Note [facility] Comment:None given LMP See Note [facility] Comment:NONE GIVEN PREV. PAP See Note [facility] Comment:NONE GIVEN PREV. BX See Note [facility] Comment:NONE GIVEN SOURCE See Note [facility] Comment:Cervix STATEMENT OF ADEQUACY See Note [facility] Comment: Satisfactory for evaluation. Endocervical/transformation zone component present. GENERAL CATEGORIZATION See Note(A) [facility] Comment:Cytology Results: Ep ithelial Cell Abnormality INTERPRETATION/RESU LT See Note(A) [facility] Comment:Low Grade Squamous I ntraepithelial Lesion (LSIL) COMMENT See Note [facility] Comment: This Pap test has been evaluated with computer assisted technology. MUSIC PUBLICIST See Note [facility] [employer] Comment: MRC, CT(ASCP) CT screening location: [place] [address] PATHOLOGIST See Note [facility] Comment: Sayra Mayfield M.D. Direct , Board Certified in Anatomic and Clinical Pathology and Cytopathology (electronic signature) Consulting Pathologist [facility] Pathology [address] [place], [place] [id number] COMMENT [facility] HPV MRNA E6/E7 Detected(A ) Not Detected [facility] Comment: Methodology: Circle Shear Operator-Mediated Amplification This assay detects E6/E7 viral messenger RNA (mRNA) from 14 high-risk HPV types (16,18,31,33,35,39,45,51,52,56,58,59,66,68). Cervical sources are required for HPV testing. If a vaginal source from a patient who has had a total hysterectomy with removal of cervix was submitted, please contact the testing laboratory for alternative testing options. For additional information, please refer to http://education.[employer]faq/TAL746a0 (This link if provided for information/ educational purposes only.) Swab Cervix uteri structure / Unknown 05/23/2024 1:54 PM EST 05/24/2024 5:47 AM EST Narrative [facility] - 05/28/2024 6:22 AM EST EXPLANATORY NOTE: [...] test SurePath(TM) specimens have been determined by [facility]. The modifications have not been cleared or approved by the FDA. This assay has been validated pursuant to the CLIA regulations and is used for clinical purposes. For additional information, please refer to https://education.[employer]faq/LMN608 (This link is being provided for information/ educational purposes only.) Liudmila Guajardo DO LAB - PATHOLOGY AND CYTOLOGY A MBULATORY Final Result Performing Organization Address City/[facility]/ZIP Co de Phone Number [facility] [address] [address], [facility] [address] * LIPID PANEL (03/14/2024 2:19 PM EDT) CHOLESTEROL, TOTAL 151 <200 mg/dL [facility] HDL CHOLESTEROL 55 > OR = 50 mg/dL [facility] TRIGLYCERIDES 50 <150 mg/dL [facility] LDL-CHOLESTEROL 84 99 mg/dL (calc) [facility] Comment: Reference range: <100 Desirable range <100 mg/dL for primary prevention; <70 mg/dL for patients with CHD or diabetic patients with > or = 2 CHD risk factors. LDL-C is now calculated using the Christopher-Salvador calculation, which is a validated novel method providing better accuracy than the Friedewald equation in the estimation of LDL-C. Christopher SS et al. KENNEDY. 2013;310(19): 2670-2259 (http://education.[employer]/faq/FCW804) CHOL/HDLC RATIO 2.7 <5.0 (calc) [facility] NON-HDL CHOLESTEROL 96 <130 mg/dL (calc) [facility] Comment: For patients with diabetes plus 1 major ASCVD risk factor, treating to a non-HDL-C goal of <100 mg/dL (LDL-C of <70 mg/dL) is considered a therapeutic option. Blood Blood / Unknown 03/14/2024 2 :19 PM EDT 03/14/2024 2:19 PM EDT Mandie Panda PA-C LAB - BLOOD DRAW Final Resul t Performing Organization Address [facility] Co de Phone Number [facility] [address] [place] [address], [employer] [facility] [address] [place] [address] from Last 3 Months or Most Recently Relevant to Health Maintenance Insurance [employer] Care Teams Oceanography Teacher Relationship Specialty Start Date End Date Pat Lau PA [address] [place] [address] PCP - General Primary Care 10/11/23
--- OUTSIDE RECORDS SUMMARY | 2025-04-22 14:27 | XMS_ITS | Clinical Summary ---
Author Organization [address] [place] [address] Address [address] [place] [address] Phone Care Team Providers Care Furnace Combination Analyst Name Role Phone Pat Lau Primary Care [...] Upcoming Encounters Date Type Department Care Team ([facility] Contact Info) Description 05/16/2025 10:00 AM EST Office Visit Bariatric Surgery - [place] [address] [place] [address] Becky Peoples MD [address] [address] [address] Health Maintenance Due Date Last Done Comments DTaP,Tdap,and Td Vaccines (1 - Tdap) 08/18/2010 Hepatitis B Vaccines (1 of 3 - 19+ 3-dose series) 08/18/2010 Cervical Cancer Screening: P ap Smear 08/18/2012 HPV Vaccines (1 - 3-dose SCD M series) 08/18/2018 HIV Screening 01/03/2024 Hepatitis C Screening 01/03/2024 Social Influencers of Health Screening 01/03/2024 Depression Screening 06/12/2024 COVID-19 Vaccine (1 - 2024-2 6 season) 2025 Influenza Vaccine (#1) 2025 RSV [...] topic Insurance MEDICAID - [place] Care Teams Furnace Combination Analyst Relationship Specialty Start Date End Date Pat Lau PA [address] [place] [address] PCP - General 04/11/25
--- OUTSIDE RECORDS SUMMARY | 2025-04-22 14:27 | XMS_ITS | Patient Health Record ---
Author Organization [facility] Address [address] [place], [place] [phone] Care Team Providers Care Group Leader Wafer Polishing Name Role Phone Ricardo Campos Primary Care Provider Cristi Alcala Unavailable [phone] Reason For Referral No Information Social History Tobacco Use: Social History Observation Description Date Details (start date - stop date) Current Smoker NA - NA Smoking: Question Answer Notes Are you a current smoker How often do you smoke cigarettes? every day Problems Problem Type SNOMED Code ICD Code Onset Dates Problem Status W/U Status Risk Notes Problem Morbid obesity (847939486) Morbid obesity (E66.01) Active confirmed Problem Palpitations (03617262) Palpitations (R00.2) Active confirmed Plan Of Treatment No Information Insurance Providers Payer Name Payer Address Payer Phone Subscriber Number Group Number Insured Name Patient Relationship to Insured Coverage Start Date Coverage End Date [facility] [address] JUAN Cardenas [phone] [id number] RadhaJavonKelsey Self - patient is the insured Medical (General) History Medical History History ICD Code Asthmatic Palpitations Surgical History Surgery Date(Month/Year)
== END 2025-04-22 12:42 | disposition home or self-care (01) ==
LOC: HO.10HDL 12:41
PROVIDERS: Visit Provider Student in an Organized Health Care Education/Training Program
DX: M62.838 Other muscle spasm (principal)
CPT/HCPCS: 36415; 80048; 83735; 85025

== ENCOUNTER 2025-04-24 08:33 | Outpatient (AMB) | payer MEDICAID, SELFPAY ==
--- NOTE | 2025-04-24 08:41 | A.OFFVIS_ITS ---
Vital Signs 04/24/25 08:42 Height 5 ft 9 in Weight 280 lb BMI 41.3 Intake Visit Reasons: fu ankle tendinitis Intake Note: Kelsey is a 34 year old female who presents today for a follow up on her left ankle tendonitis. At her last visit she was prescribed Medrol dosepak and advised to perform stretching and range of motion exercises. Patient reports the medication took the edge off from her pain and she finds that it is slightly better to walk on. She states she has been performing the range of motion & stretching exercises however she believes its too soon to tell if she has seen any changes. Allergies No Known Allergies Allergy (Verified 04/24/25 08:43) HPI HPI fu ankle tendinitis: Details: The patient is a 34-year-old female presents with an undiagnosed connective tissue disorder who returns for 3 week follow up of left ankle pain. She completed the Medrol Dosepak prescribed last visit, saw improvement in her pain from a 9/10 to a 6/10. Patient states she has been performing the range of motion exercises at home. She did not purchased the orthotics yet. She is able to walk now with less pain however still persistent. History: She reports significant ankle pain following a 2.5 mile hike mid- March. She has been treating it with Biofreeze which has not helped. She also complains of right foot arch muscle spasms causes her big toe to flex downward and her second toe to spasm upward. The patient has a history of hypermobility syndrome and was previously followed by a [facility]. 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 Social History: - The patient is on a weight loss journey and was engaging in regular exercise before the injury. - She recently moved to [facility] and is in the process of transferring her healthcare. 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 No clinical signs of infection. Neuro: Protective sensation grossly intact to bilateral lower extremities MSK: Mild tenderness on palpation over the extensor tendons of the left ankle worst on maximum plantar flexion. No pain on resisted dorsiflexion and plantar flexion of the ankle. Minimal pain on direct palpation over the 2nd tarsometatarsal joint. Moderate left foot arch on weight-bearing, Normal arch right foot on weight- bearing. Mild right hallux valgus deformity, moderate left hallux valgus deformity. Mild dorsal extension bilateral 2nd MTP, negative wendy's test. Flexible flexion deformity PIPJ 2-5 bilateral feet. Genu valgum and recurvatum deformity. Results Reviewed Results Reviewed: Podiatry X-ray Read: 02/12/2025 X-ray left foot 3 nonweightbearing views (AP, MO, Lateral) reviewed which shows no fractures, dislocations, or gross abnormalities. Mild joint space narrowing left 2nd TMT and 3rd TMT. Moderate plantar heel spur 7mm x 5mm. I personally reviewed the imaging and my findings are listed above. Laboratory Tests 04/22/25 12:45 Sodium 137 Potassium 3.9 Magnesium 1.9 Assessment & Plan Assessment & Plan (1) Tendinitis of left ankle: Code(s): M77.52 - Other enthesopathy of left foot and ankle Category: Medical Plan: * Reviewed etiology of her ankle tendinitis. * Symptoms are improving however still persistent. * Referred for left ankle x-rays. * Referred to physical therapy * Rx diclofenac b.i.d. * Instructed to begin eccentric exercises for the ankle. * Follow up in 3 weeks. May require MRI if symptoms persist. (2) Muscle spasm of right lower extremity: Code(s): M62.838 - Other muscle spasm Category: Medical Plan: * Reviewed labs from last visit. * Recommended Superfeet orthotics to correct her arch and decrease mechanical loadng on her abductor hallucis muscle which may be in spasm during periods of prolonged walking/activity. (3) Connective tissue disorder: Code(s): M35.9 - Systemic involvement of connective tissue, unspecified Category: Medical Plan: * Discussed that she has hyperlaxity of her pedal joints, specifically her medial column and her 1st Metatarsal-phalangeal joint and digits. * She has early 2nd MTP instability bilaterally. Recommended hammertoe crest pads. Orders: Orders PT Evaluation and Treatment Today M77.52 - Other enthesopathy of left foot and ankle XR Ankle Heath min 3V Today M77.52 - Other enthesopathy of left foot and ankle Medications: New diclofenac sodium 75 mg PO BID PRN 30 tabs 1RF pain (scale score 4-6) Coding Level of Care Code Est Pt Level 4 (59273) Diagnoses Tendinitis of left ankle M77.52 Muscle spasm of right lower extremity M62.838 Connective tissue disorder M35.9
[2025-04-24 08:42] VITALS: BMI 41.3
--- OUTSIDE RECORDS SUMMARY | 2025-04-24 08:53 | XMS_ITS | Clinical Summary ---
Author Organization [facility] Address [address] [place] [address] Care Team Providers Care Weight Yardage Checker Name Role Phone Pat Lau Primary Care Provider [phone] Source Comments PLEASE NOTE, if this patient [...] Description 02/12/2025 9:00 AM EDT Office Visit [address] [phone] Gordy Baker MD 02/07/2025 8:40 AM EDT Office Visit [address] [phone] Gordy Baker MD 01/22/2025 Results Follow-Up [address] [address] Gordy Baker MD from Last 3 Months [...] series) 08/18/2018 Relationship Safety Screening/Counseling 12/11/2024 12/12/2023 [id number] ( season) 2025 Imm-Influenza (#1) 2025 Annual Wellness (Adult): Ind icated (All Coverage) 03/14/2025 03/14/2024 Anxiety Screening 03/14/2025 03/14/2024 Cervical Cancer Screening 05/12/2025 Pap + HPV 05/12/2025 05/23/2024 Hypertension Screening (#1) 02/12/2026 Tobacco Screening 02/12/2026 02/12/2025 Lipid Screening 03/14/2027 03/14/2024 Pap Smear 05/23/2027 05/23/2024 Imm-RSV (adult) (1 - 1-dose 75+ series) 08/18/2066 Alcohol and Drug Screen Completed 07/02/19, 03/14/2024, [...] PM EDT Insertion of implantable subdermal contraceptive HIV 1/2 AG & AB W/RFLX (4TH GEN) Routine 01/21/2025 9:17 AM EDT Screening examination for venereal disease HEPATITIS C AB W/RFLX HCV RNA, QT, [...] (BMI) of 40.0 to 44.9 in adult ([facility]) from Last 3 Months or Most Recently [...] BACK OFFICE POCT [facility]NAL [facility]- BACK OFFICE POCT Urine Urine specimen / Unknown 02/12/2025 3:38 PM EDT Gordy Baker MD LAB URINE AMBULATORY Final Resu lt [facility]- BACK OFFICE POCT * HEPATITIS C AB W/RFLX HCV RNA, QT, RT PCR Routine (01/21/2025 9:17 AM EDT) HEPATITIS C ANTIBODY NON-REACT HEATHER NON-REACT HEATHER 01/22/2025 10:03 AM EDT [facility] Blood Blood / Unknown 01/21/2025 9 :17 AM EDT 01/22/2025 7:03 AM EDT Narrative [facility] - 01/22/2025 10:05 AM EDT . HCV antibody was non-reactive. There is no laboratory evidence of HCV infection. . In most cases, no further action is required. However, if recent HCV exposure is suspected, a test for HCV RNA (test code 60142) is suggested. . For additional information please refer to http://education.[employer]/faq/KUQ17u9 (This link is being provided for informational/ educational purposes only.) . us Gordy Baker MD LAB - BLOOD DRAW Final Result Performing Organization Address [facility] Co de Phone Number [facility] [address] [address], [facility] [address] [address] * HIV 1/2 AG & AB W/RFLX (4TH GEN) Routine (01/21/2025 9:17 AM EDT) HIV Screen Final SEE NOTE 01/22/2025 10:03 AM EDT [facility] HIV AG/AB, 4TH GEN NON-REACT HEATHER NON-REACT HEATHER 01/22/2025 10:03 AM EDT [facility] Blood Blood / Unknown 01/21/2025 9 :17 AM EDT 01/22/2025 7:03 AM EDT [facility] - 01/22/2025 10:05 AM EDT HIV Negative . HIV-1 antigen and HIV-1/HIV-2 antibodies were not detected. There is no laboratory evidence of HIV infection. us Gordy Baker MD LAB - BLOOD DRAW Final Result Performing Organization Address [facility] de Phone Number [facility] [address] [address], [facility] [address] [address] * (ABNORMAL) THINPREP IMAGING PAP, HPV MRNA E6/E7 RFLEX HPV 16,18/45 CT/NG (05/23/2024 1:54 PM EST) CHLAMYDIA TRACHOMATIS RNA, TMA NOT DETECTED NOT DETECTED [facility] NEISSERIA GONORRHOEAE RNA, TMA NOT DETECTED NOT DETECTED [facility] COMMENT [facility] CLINICAL INFORMATION See Note [facility] Comment:None given LMP See Note [facility] Comment:NONE GIVEN PREV. PAP See Note [facility] Comment:NONE GIVEN PREV. BX See Note [facility] Comment:NONE GIVEN SOURCE See Note [facility] Comment:Cervix STATEMENT OF ADEQUACY See Note [facility] Comment: Satisfactory for evaluation. Endocervical/transformation zone component present. GENERAL CATEGORIZATION See Note(A) [facility] Comment:Cytology Results: Ep ithelial Cell Abnormality INTERPRETATION/RESU LT See Note(A) [facility] Comment:Low Grade Squamous I ntraepithelial Lesion (LSIL) COMMENT See Note [facility] Comment: This Pap test has been evaluated with computer assisted technology. GULLET SLITTER See Note [facility] Comment: MRC, CT(ASCP) CT screening location: [place] [address] PATHOLOGIST See Note [facility] Comment: Sayra Mayfield M.D. Direct , Board Certified in Anatomic and Clinical Pathology and Cytopathology (electronic signature) Consulting Pathologist [facility] [address] [place] [address] COMMENT [facility] HPV MRNA E6/E7 Detected(A ) Not Detected [facility] Comment: Methodology: Meter Repair Shop Supervisor-Mediated Amplification This assay detects E6/E7 viral messenger RNA (mRNA) from 14 high-risk HPV types (16,18,31,33,35,39,45,51,52,56,58,59,66,68). Cervical sources are required for HPV testing. If a vaginal source from a patient who has had a total hysterectomy with removal of cervix was submitted, please contact the testing laboratory for alternative testing options. For additional information, please refer to http://education.[employer]/faq/GBF433a4 (This link if provided for information/ educational purposes only.) [facility] Cervix uteri structure / Unknown 05/23/2024 1:54 PM EST 05/24/2024 5:47 AM EST Narrative [facility] - 05/28/2024 6:22 AM EST [...] test SurePath(TM) specimens have been determined by [facility]. The modifications have not been cleared or approved by the FDA. This assay has been validated pursuant to the CLIA regulations and is used for clinical purposes. For additional information, please refer to https://education.[employer]/faq/AAM644 (This link is being provided for information/ educational purposes only.) us Liudmila Formisano DO LAB - PATHOLOGY AND CYTOLOGY A MBULATORY Final Result [facility] [address] [address], [facility] [address] [address] * LIPID PANEL (03/14/2024 2:19 PM EDT) CHOLESTEROL, TOTAL 151 <200 mg/dL [facility] HDL CHOLESTEROL 55 > OR = 50 mg/dL [facility] TRIGLYCERIDES 50 <150 mg/dL [facility] LDL-CHOLESTEROL 84 99 mg/dL (calc) [facility] Comment: Reference range: <100 Desirable range <100 mg/dL for primary prevention; <70 mg/dL for patients with CHD or diabetic patients with > or = 2 CHD risk factors. LDL-C is now calculated using the Christopher-Salvador calculation, which is a validated novel method providing better accuracy than the Friedewald equation in the estimation of LDL-C. Christopher DAVIS et al. KENNEDY. 2013;310(19): 7744-6586 (http://education.[employer]/faq/HNJ544) CHOL/HDLC RATIO 2.7 <5.0 (calc) [facility] NON-HDL CHOLESTEROL 96 <130 mg/dL (calc) [facility] Comment: For patients with diabetes plus 1 major ASCVD risk factor, treating to a non-HDL-C goal of <100 mg/dL (LDL-C of <70 mg/dL) is considered a therapeutic option. Blood Blood / Unknown 03/14/2024 2 :19 PM EDT 03/14/2024 2:19 PM EDT Mandie Panda PA-C LAB - BLOOD DRAW Final Resul t [facility] [address] [address], [facility] [address] [place] [address] from Last 3 Months or Most Recently Relevant to Health Maintenance Insurance [facility] Care Teams Weight Yardage Checker Relationship Specialty Start Date End Date Pat Lau PA [address] [place] [address] PCP - General Primary Care 10/11/23
--- OUTSIDE RECORDS SUMMARY | 2025-04-24 08:53 | XMS_ITS | Clinical Summary ---
Author Organization [address] [place] [address] Address [address] [place] [address] Phone Care Team Providers Care Bee Tender Name Role Phone Pat Lau Primary Care [...] Upcoming Encounters Date Type Department Care Team ([facility] Contact Info) Description 05/16/2025 10:00 AM EST Office Visit Bariatric Surgery - [place] [address] [place] [address] Becky Peoples MD [address] [facility] [address] [address] Health Maintenance Due Date Last Done Comments [...] topic Insurance MEDICA[place] - [place] Care Teams Bee Tender Relationship Specialty Start Date End Date Pat Lau PA [address] [place] [address] PCP - General 04/11/25
--- OUTSIDE RECORDS SUMMARY | 2025-04-24 08:53 | XMS_ITS | Clinical Summary ---
Author Organization [employer] Address [address] [facility] [address] [place] [address] Care Team Providers Care Stone Rubber Name Role Phone Unavailable Primary Care Provider [...] 08/18/2021 HPV/Cotest 08/18/2021 COVID-19 Vaccine (1 - 2024-2 6 season) 2025 Influenza Vaccine (#1) 2025 Zoster [...]
--- OUTSIDE RECORDS SUMMARY | 2025-04-24 08:53 | XMS_ITS | Patient Health Record ---
Author Organization [facility] Address [address] [facility] [address] [place], [place] [id number] Care Team Providers Care Machine Spring Former Name Role Phone Ricardo Campos Primary Care Provider Cristi Alcala Unavailable [phone] Reason For Referral No Information Social History Tobacco Use: Social History Observation Description Date Details (start date - stop date) Current Smoker NA - NA Smoking: Question Answer Notes Are you a current smoker How often do you smoke cigarettes? every day Problems Problem Type SNOMED Code ICD Code Onset Dates Problem Status W/U Status Risk Notes Problem Morbid obesity (610048023) Morbid obesity (E66.01) Active confirmed Problem Palpitations (42692121) Palpitations (R00.2) Active confirmed Plan Of Treatment No Information Insurance Providers Payer Name Payer Address Payer Phone Subscriber Number Group Number Insured Name Patient Relationship to Insured Coverage Start Date Coverage End Date [facility] [address] JUAN Cardenas [phone] [id number] RadhaJavonKelsey Self - patient is the insured Medical (General) History Medical History History ICD Code Asthmatic Palpitations Surgical History Surgery Date(Month/Year)
== END 2025-04-24 08:59 | disposition home or self-care (01) ==
LOC: HO.HPODS 08:33
PROVIDERS: Visit Provider Student in an Organized Health Care Education/Training Program
DX: M77.52 Other enthesopathy of left foot and ankle (principal); M62.838 Other muscle spasm; M35.9 Systemic involvement of connective tissue, unspecified
CPT/HCPCS: 99214

== ENCOUNTER → 2025-04-24 08:33 | Outpatient (BNVA) | payer MEDICAID, SELFPAY | PROVIDERS: Visit Provider Student in an Organized Health Care Education/Training Program | DX: M77.52 Other enthesopathy of left foot and ankle (principal); M62.838 Other muscle spasm; M35.9 Systemic involvement of connective tissue, unspecified | CPT/HCPCS: 99212 ==

== ENCOUNTER 2025-04-28 12:59 | Outpatient (REF) | payer MEDICAID, SELFPAY ==
--- NOTE | ~2025-04-28 | XR_ITS ---
EXAMINATION: X-ray bilateral ankles CLINICAL INFORMATION: Enthesopathy COMPARISON: None TECHNIQUE: Bilateral ankles each 3 views FINDINGS: Left ankle: No fracture. Ankle mortise congruent. No significant joint space narrowing. No marginal osteophytes. No osseous erosion. No significant tibiotalar joint effusion. No abnormal soft tissue calcification. . Right ankle: No fracture. Ankle mortise is congruent No significant joint space narrowing. No marginal osteophytes. No osseous erosion. No significant tibiotalar joint effusion. No abnormal soft tissue calcification. XR/XR Ankle Heath min 3V IMPRESSION: No acute findings Electronically signed by: David Hope MD 04/29/2025 07:56 AM EST
== END 2025-04-28 13:00 | disposition home or self-care (01) ==
LOC: HO.XRAY 12:59
PROVIDERS: PCP Physician Assistant Medical; Visit Provider Student in an Organized Health Care Education/Training Program
DX: M77.52 Other enthesopathy of left foot and ankle (principal)
CPT/HCPCS: 73610

== ENCOUNTER → 2025-04-28 13:06 | Outpatient (BNV) | payer MEDICAID, SELFPAY | PROVIDERS: PCP Physician Assistant Medical; Visit Provider Radiology Diagnostic Ultrasound | DX: M77.52 Other enthesopathy of left foot and ankle (principal) | CPT/HCPCS: 73610 ==

== ENCOUNTER 2025-05-19 09:45 | Outpatient (AMB) | payer MEDICAID, SELFPAY ==
--- NOTE | 2025-05-19 09:57 | A.OFFVIS_ITS ---
Vital Signs 05/19/25 10:01 Height 5 ft 9 in Weight 180 lb BMI 26.6 Intake Visit Reasons: fu ankle tendiniti/Fu X-ray Intake Note: Kelsey is a 34 year old female who presents to the office today for a follow up for ankle tendinitis. At last visit pt was instructed to complete x-ray and an order for PT was placed. X-rays completed. Pt states to diclofenac is not helping for the pain. She had called office on 05/16/25 with concerns of her ankle pain radiating to her knee, she had attended physical therapy twice and is unsure if she is experiencing a flare up, and her ankle is swelling and she experiences pain while ambulating. Patient had a phone call returned by provider and she reports she is currently feeling better and had followed the providers instruction on bed rest, no PT for 1 week ,alternating ice and heat, and she had purchased OTC Tylenol arthritis which has been helping. Allergies No Known Allergies Allergy (Verified 05/19/25 09:58) HPI HPI fu ankle tendiniti/Fu X-ray: Details: The patient is a 34-year-old female presents with an undiagnosed connective tissue disorder who returns for 1 month follow up of left ankle pain. She started physical therapy and had 2 sessions and then had increased pain as well as some bruising to her left ankle. She started taking Tylenol arthritis such as helped the pain; she is no longer taking diclofenac. She has been performing range of motion and stretching exercises at home. No longer experiencing right midfoot spasms. Has not yet purchased orthotics. History: She reports significant ankle pain following a 2.5 mile hike mid- March. She has been treating it with Biofreeze which has not helped. She also complains of right foot arch muscle spasms causes her big toe to flex downward and her second toe to spasm upward. The patient has a history of hypermobility syndrome and was previously followed by a Exercise Manager. 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 Social History: - The patient is on a weight loss journey and was engaging in regular exercise before the injury. - She recently moved to [facility] and is in the process of transferring her healthcare. 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 No clinical signs of infection. Neuro: Protective sensation grossly intact to bilateral lower extremities MSK: Mild tenderness on palpation over the extensor tendons of the left ankle worst on maximum plantar flexion. No pain on resisted dorsiflexion and plantar flexion of the ankle. Minimal pain on direct palpation over the 2nd tarsometatarsal joint. Moderate left foot arch on weight-bearing, Normal arch right foot on weight- bearing. Mild right hallux valgus deformity, moderate left hallux valgus deformity. Mild dorsal extension bilateral 2nd MTP, negative wendy's test. Flexible flexion deformity PIPJ 2-5 bilateral feet. Genu valgum and recurvatum deformity. Assessment & Plan Assessment & Plan (1) Tendinitis of left ankle: Code(s): M77.52 - Other enthesopathy of left foot and ankle Category: Medical Plan: * Reviewed etiology of her ankle tendinitis. * Dispensed lace-up ankle brace * Recommended discontinuing PT for 2 weeks. * Recommended stretching and band therapy exercises * Referred for left ankle MRI due to persistent pain that is not improve with conservative treatment and worsened with physical therapy * Follow up in 3 weeks. (2) Pain of left midfoot: Code(s): M79.672 - Pain in left foot Category: Medical Plan: * Rx left midfoot MRI (3) Muscle spasm of right lower extremity: Code(s): M62.838 - Other muscle spasm Category: Medical Plan: * Resolved * Recommended Superfeet orthotics to correct her arch and decrease mechanical loadng on her abductor hallucis muscle which may be in spasm during periods of prolonged walking/activity. (4) Connective tissue disorder: Code(s): M35.9 - Systemic involvement of connective tissue, unspecified Category: Medical Plan: * Discussed that she has hyperlaxity of her pedal joints, specifically her medial column and her 1st Metatarsal-phalangeal joint and digits. * She has early 2nd MTP instability bilaterally. Recommended hammertoe crest pads. Orders: Orders MR ankle LT wo con Today M77.52 - Other enthesopathy of left foot and ankle MR foot LT wo con Today M79.672 - Pain in left foot Coding Level of Care Code Est Pt Level 3 (54501) Diagnoses Tendinitis of left ankle M77.52 Pain of left midfoot M79.672 Muscle spasm of right lower extremity M62.838 Connective tissue disorder M35.9 Time Spent (min) 20
[2025-05-19 10:01] VITALS: BMI 26.6
== END 2025-05-19 10:36 | disposition home or self-care (01) ==
PROVIDERS: PCP Physician Assistant Medical; Visit Provider Student in an Organized Health Care Education/Training Program
DX: M77.52 Other enthesopathy of left foot and ankle (principal); M79.672 Pain in left foot; M62.838 Other muscle spasm; M35.9 Systemic involvement of connective tissue, unspecified
CPT/HCPCS: 99213

== ENCOUNTER → 2025-05-19 09:45 | Outpatient (BNVA) | payer MEDICAID, SELFPAY | PROVIDERS: PCP Physician Assistant Medical; Visit Provider Student in an Organized Health Care Education/Training Program | DX: M77.52 Other enthesopathy of left foot and ankle (principal); M62.838 Other muscle spasm; M35.9 Systemic involvement of connective tissue, unspecified | CPT/HCPCS: 99212 ==